=== PATIENT | male | born 2005 | race Caucasian/White ===

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

== ENCOUNTER 2023-08-07 16:20 | Emergency (ER) | payer OTHER, SELFPAY ==
[2023-08-07 16:33] VITALS: BP 148/97; PULSE 116; RESP 15; O2SAT 99; BMI 23.6
--- NOTE | 2023-08-07 16:44 | ECG_ITS ---
Test Reason : OD Blood Pressure : / mmHG Vent. Rate : 100 BPM Atrial Rate : 100 BPM P-R Int : 140 ms QRS Dur : 084 ms QT Int : 348 ms P-R-T Axes : 062 054 033 degrees QTc Int : 448 ms Normal sinus rhythm Normal ECG No previous ECGs available Referred By: Melissa Torres Electronically Signed By:DONNIE AVITIA MD
--- NOTE | 2023-08-07 16:44 | PC.NURSE ---
Addendum entered by Te Estrada 08/07/23 16:47: MARTINEZ KHAN AWARE. Original Note: 1640 CALLED POISON CONTROL - RECOMMENDATIONS NO CHARCOAL. EKG NOW; REPEAT EVERY 2 HRS X3, THEN EVERY 4HRS TIL MEDICALLY CLEARED. SUPPORTIVE CARE. LABS; TYLENOL, SALYCILATES, LFTS, CMP. KEEP MAG >2, K>4. WATCH FOR ANTICHOLENERGIC EFFECTS/URINARY RETENTION. BENZOS FOR AGITATION. BICARB IF QRS>100.
--- NOTE | 2023-08-07 16:45 | PC.NURSE ---
pt changed over by security belongings in pod linen closet. 1:1 sitter at bedside. on heart monitor. report given to Kate TORRES taking over care at this time.
--- NOTE | 2023-08-07 16:53 | ED.OVERDOSE ---
HPI - Overdose General Chief Complaint: Psychiatric Symptoms Stated Complaint: SI with plan, pt took 850 mg of benadryl, per ems Time Seen by Provider: 08/07/23 16:25 Source: patient, family and EMS Mode of arrival: EMS Limitations: no limitations History of Present Illness HPI Narrative: patient is a 18-year-old male who presents emergency department via EMS with his mother; Regina Ramirez. Patient presents today after SI attempt. He posted a photo to his social media of 8 50 mg Benadryl tablets that he reportedly had taken at approximately 1300 after his girlfriend had broken up with him. His friends had reportedly sent a photo of this post to his mother who contacted father who was at home. When father confronted him about this he stormed out of the house and drove off. They were able to find him 2 blocks away from the home he was sitting in a parking lot in his car. He has been drowsy since then but does answer questions appropriately. Mother reports that he has a history of OCD and he often gets very obsessive thoughts. Within the past 4-6 weeks his Prozac dose was increased to 40 mg. Per mother's report, she does not believe any additional Prozac was taken then routinely scheduled after viewing the bottle. She states that he does smoke marijuana daily in the he denies any additional recreational drug usage. Patient denies taking anything else. He is answering questions appropriately, with 1-2 word answers. Very withdrawn. Related Data Allergies Allergy/AdvReac Type Severity Reaction Status Date / Time Penicillins [PENICILLINS] Allergy Intermediate RASH, Unverified 04/16/20 17:33 VOMITING amoxicillin [From AUGMENTIN] Allergy Unknown HIVES/VOMIT Unverified 04/16/20 17:33 clavulanic acid Allergy Unknown HIVES/VOMIT Unverified 04/16/20 17:33 [From AUGMENTIN] clindamycin [CLINDAMYCIN] Allergy Unknown HIVES/VOMIT Unverified 04/16/20 17:33 penicillamine Allergy Unknown Verified 03/16/20 00:00 Erythromycin Allergy Unknown Uncoded 03/16/20 00:00 Review of Systems Review of Systems: Yes all other systems are reviewed and are negative PMFSH Past Medical History Attestation statement: The following information was validated with the patient. Source: old records reviewed Onset Date is defined in the Problem List Problems that require an onset date and time if occurred within 24 hrs of arrival to the ED Aortic Dissection and Rupture; Neurologic impairment; Cardiopulmonary Arrest; Endotracheal Intubation; Insertion or Replacement of Mechanical Circulatory Assist Device Medical History (Updated 08/08/23 @ 00:56 by Melissa Torres CNP) OCD (obsessive compulsive disorder) Social History Social History Advance Directives: No Advance Directives Information Provided: No Physical Exam Vital Signs: Vital Signs: Last Vital Signs Temp 98.8 F 08/07/23 20:40 Pulse 77 08/07/23 20:40 Resp 16 08/07/23 20:40 BP 137/83 08/07/23 20:40 Pulse Ox 97 08/07/23 20:40 O2 Del Method Room Air 08/07/23 20:40 BMI result Body Mass Index 23.6 Appearance: Alert.?Oriented to person, place and time. No acute distress.?Normal affect. Eyes: Pupils equal, round and reactive to light.? ENT: Pharynx normal.?? Neck: Normal inspection.? Neck supple.?? CVS: Heart sounds normal. Normal heart rate and rhythm.? Pulses normal.?? Respiratory: No respiratory distress.? Lung sounds clear to auscultation bilaterally?? Abdomen: Soft and non-tender. Normoactive bowel sounds. Skin: Skin warm and dry.? Normal skin color.? Extremities: No lower extremity edema.? Neuro: Moves all extremities spontaneously. Sensation intact bilaterally. CN II-XII intact. No focal neuro deficits. Ambulates with normal steady gait. Course Reevaluation(s) Reevaluation #1: serial EKGs remain unchanged normal sinus rhythm, normal QRS and QTC. Serum labs are unremarkable. Per poison Control, goal for magnesium > to, resulted at 1.7, patient received 2 g IV replacement. Remains conscious alert and oriented x3. Speech clear full sentences. Much more awake than his initial arrival. Toxicology is otherwise negative. At this time feel that he is medically cleared for care team evaluation. He has been placed in physician observation. Time: 21:58 Medications Administered Discontinued Medications Generic Name Dose Route Start Last Admin Trade Name Freq PRN Reason Stop Dose Admin Magnesium Sulfate 2 gm in 50 mls @ 25 mls/hr 08/07/23 20:55 08/07/23 23:10 Magnesium Sulfate/H2o IV 08/07/23 22:54 Infused ONCE ONE Infusion Medical Decision Making Medical Decision Making [facility] Narrative: Patient is a 18-year-old male with past medical history of OCD who presents to the emergency department via EMS for evaluation after diphenhydramine overdose as an SI attempt. Far as we know patient took 400 mg of diphenhydramine at approximately 13:00 to day as per HPI. At the time my examination he is drowsy but able to respond to verbal stimuli and answer questions appropriately. denies any physical complaints at this time. Denies homicidal ideations. poison control was contacted, with recommendations for EKG now, then every 2 hours for a total of 3 EKGs. should QRS be greater than 100 MS bicarb to be administered. no activated charcoal to be administered Differential Diagnosis Differential Diagnoses: The differential diagnosis associated with the presentation includes ( intentional diphenhydramine overdose, suicidal ideations, depression, arrhythmia) Admission/Observation Consideration of admission/observation: Escalation of care including admission/observation considered patient will require physician observation for serial monitoring as Per narrative above. Once medically cleared he will remain in physician observation so that care team evaluation can ensue. Lab Data [facility] Lab Attestation statement: I reviewed the patient's lab results. ( see course narrative) 08/07/23 17:02 08/07/23 17:02 Labs: Lab Results 08/07/23 08/07/23 Range/Units 17:02 19:18 WBC 8.6 (4.8-10.8) X10*3/uL RBC 4.92 (4.60-5.80) X10*6/uL Hgb 14.9 (14.0-18.0) g/dl Hct 43.9 (42.0-52.0) % MCV 89.2 (80.0-98.0) fL MCH 30.3 (27.0-33.0) pg MCHC 33.9 (31.0-36.0) g/dl RDW 12.4 (11.0-16.0) % Plt Count 332 (160-400) X10*3/uL MPV 8.5 L (9.4-12.4) fL Immature Gran % (Auto) 0.1 (0.0-0.4) % Neut % (Auto) 77.8 H (45-73) % Lymph % (Auto) 16.1 L (20-40) % [place] % (Auto) 5.0 (2-11) % Eos % (Auto) 0.4 (0-4) % Baso % (Auto) 0.6 (0-2) % Lymph # (Auto) 1.4 (1.2-4.9) X10*3/uL [place] # (Auto) 0.4 (0.1-1.2) X10*3/uL Eos # (Auto) 0.0 (0.0-0.4) X10*3/uL Baso # (Auto) 0.1 (0.0-0.2) X10*3/uL Abs Immat Gran (auto) 0.01 (0.00-0.03) X10*3/uL Absolute Neuts (auto) 6.7 (2.0-8.3) x10*3/uL Absolute Nucleated RBC 0.000 (0.0-0.012) X10*3/uL Nucleated RBC % (auto) 0.0 (0.0-0.2) /100WBC Sodium 140 (135-145) mmol/L Potassium 4.2 (3.3-5.1) mmol/L Chloride 103 (96-108) mmol/L Carbon Dioxide 22 (22-29) mmol/L Anion Gap 19 (12-20) BUN 15 (9-16) mg/dL Creatinine 0.98 (0.5-1.4) mg/dL Estim Creat Clear Calc 120.2 Estimated GFR > 60 Random Glucose 84 (60-115) mg/dL Calcium 9.9 (8.4-10.2) mg/dL Magnesium 1.7 (1.6-2.6) mg/dL Total Bilirubin 0.6 (0.0-1.0) mg/dL AST 17 (5-37) U/L ALT 12 (0-40) U/L Alkaline Phosphatase 118 H (39-117) U/L Troponin I High Sens < 2.7 (<3.5-35.0) ng/L Total Protein 7.5 (6.5-8.0) g/dL Albumin 4.6 (3.5-5.0) g/dL Urine Color Yellow Urine Appearance Clear Urine pH 5.5 (5.0-9.0) Ur Specific [place] 1.020 (1.005-1.025) Urine Protein Negative (Neg-Trace) mg/dL Urine Glucose (UA) Negative (Negative) mg/dL Urine Ketones 80 (Negative) mg/dL Urine Blood Negative (Negative) Urine Nitrite Negative (Negative) Ur Leukocyte Esterase Negative (Negative) Salicylates < 5.0 L (15-30) mg/dL Urine Opiates Screen Not Detected (Not Detect) Urine Fentanyl Screen Not Detected (Not Detect) Acetaminophen < 3 (<30) mcg/mL Ur Barbiturates Screen Not Detected (Not Detect) Ur Phencyclidine Scrn Not Detected (Not Detect) Ur Amphetamines Screen Not Detected (Not Detect) U Benzodiazepines Scrn Not Detected (Not Detect) Urine Cocaine Screen Not Detected (Not Detect) U Marijuana (THC) Screen Not Detected (Not Detect) Ethyl Alcohol < 10 mg/dL Independent Interpretation I performed an independent interpretation of an: EKG Interpretation: initial EKG 16:56 Rate:100 Rhythm:? normal sinus rhythm Normal P waves.? Normal EMILY.?? Normal QRS complex: 84ms?? ST T wave :?? no ST ratio, no ST depression qTC: 448 The study has been interpreted contemporaneously by me. Independent Historian Clinical information obtained from an independent historian. History obtained from or confirmed by: Parent and EMS External Record Review External record reviewed: Other (Poison Control) Discharge Plan Discharge Clinical Impression: Suicide ideation Intentional overdose Qualifiers: Encounter type: initial encounter Qualified Code(s): T50.902A - Poisoning by unspecified drugs, medicaments and biological substances, intentional self-harm, initial encounter Patient Disposition: Still a Patient Interventions: Dodge-Suicide Risk Severity Scale Last Done: 08/07/23 17:29
[2023-08-07 17:04] VITALS: BP 139/82; PULSE 97; RESP 15; TEMP 36.2; O2SAT 99
[2023-08-07 17:07] LABS: MANUAL DIFF FLAG NO
[2023-08-07 17:10] LABS: Basophils Absolute Auto 0.1 X10*3/uL (0.0-0.2); Basophils Percent Auto 0.6 % (0-2); Eosinophils Percent Auto 0.4 % (0-4); Hematocrit 43.9 % (42.0-52.0); Hemoglobin 14.9 g/dl (14.0-18.0); Imm Gran Abs Auto 0.01 X10*3/uL (0.00-0.03); Imm Gran Pct Auto 0.1 % (0.0-0.4); Lymphocytes Absolute Auto 1.4 X10*3/uL (1.2-4.9); Lymphocytes Percent Auto 16.1 % (20-40); Mean Corpuscular HGB Conc 33.9 g/dl (31.0-36.0); Mean Corpuscular Hemoglobin 30.3 pg (27.0-33.0); Mean Corpuscular Volume 89.2 fL (80.0-98.0); Mean Platelet Volume 8.5 fL (9.4-12.4); Monocytes Absolute Auto 0.4 X10*3/uL (0.1-1.2); Neutrophils Absolute Auto 6.7 x10*3/uL (2.0-8.3); Neutrophils Percent Auto 77.8 % (45-73); Platelet Count 332 X10*3/uL (160-400); Red Blood Count 4.92 X10*6/uL (4.60-5.80); Red Cell Distribution Width 12.4 % (11.0-16.0); White Blood Count 8.6 X10*3/uL (4.8-10.8)
[2023-08-07 17:27] LABS: Acetaminophen LAB < 3 mcg/mL (<30); Alanine Aminotransferase 12 U/L (0-40); Albumin Level 4.6 g/dL (3.5-5.0); Alkaline Phosphatase 118 U/L (39-117); Anion Gap 19 (12-20); Aspartate Amino Transferase 17 U/L (5-37); Bilirubin Total 0.6 mg/dL (0.0-1.0); Blood Urea Nitrogen 15 mg/dL (9-16); Calcium 9.9 mg/dL (8.4-10.2); Carbon Dioxide 22 mmol/L (22-29); Chloride 103 mmol/L (96-108); Creatinine Clr Calc Pharmacy 120.2; Estimated Glomerular Filt Rate > 60; Ethanol < 10 mg/dL; Glucose Random 84 mg/dL (60-115); Magnesium 1.7 mg/dL (1.6-2.6); Potassium 4.2 mmol/L (3.3-5.1); Salicylate < 5.0 mg/dL (15-30); Sodium 140 mmol/L (135-145); Total Protein 7.5 g/dL (6.5-8.0)
[2023-08-07 17:35] LABS: Troponin-I High Sensitivity < 2.7 ng/L (<3.5-35.0)
--- NOTE | 2023-08-07 19:00 | ECG_ITS ---
Test Reason : OVERDOSE Blood Pressure : / mmHG Vent. Rate : 084 BPM Atrial Rate : 084 BPM P-R Int : 142 ms QRS Dur : 084 ms QT Int : 356 ms P-R-T Axes : 063 058 028 degrees QTc Int : 420 ms Normal sinus rhythm Normal ECG When compared with ECG of 07-AUG-2023 16:56, No significant change was found Referred By: Melissa Torres Electronically Signed By:DONNIE AVITIA MD
[2023-08-07 19:19] VITALS: BP 136/84; PULSE 77; RESP 18; TEMP 36.9; O2SAT 98
[2023-08-07 19:28] LABS: Appearance Urine Clear; Color Urine Yellow; Glucose Urine UA Negative (Negative); Leukocyte Esterase Urine Negative (Negative); Nitrite Urine Negative (Negative); PH 5.5 (5.0-9.0); Urine Blood Negative (Negative); Urine Ketones 80 mg/dL (Negative); Urine Protein Negative (Neg-Trace)
[2023-08-07 19:35] LABS: Amphetamine Screen Urine Not Detected (Not Detect); Barbiturates, Urine Not Detected (Not Detect); Benzodiazepines Screen Urine Not Detected (Not Detect); Cannabinoid Screen Urine Not Detected (Not Detect); Cocaine Screen Urine Not Detected (Not Detect); Fentanyl, urine Not Detected (Not Detect); Opiate Screen Urine Not Detected (Not Detect); Phencyclidine Screen Urine Not Detected (Not Detect)
[2023-08-07 20:40] VITALS: BP 137/83; PULSE 77; RESP 16; TEMP 37.1; O2SAT 97
--- NOTE | 2023-08-07 20:52 | PC.NURSE ---
per poison control supp mag to 2.0
--- NOTE | 2023-08-07 20:55 | PC.NURSE ---
per poison control magnesium should be supplemented a level of 2. if patient remains sleepy he should be monitored overnight. this info was reported to Vargas Gage.
--- NOTE | 2023-08-07 21:00 | ECG_ITS ---
Test Reason : OVERDOSE-REPEAT Blood Pressure : / mmHG Vent. Rate : 071 BPM Atrial Rate : 071 BPM P-R Int : 142 ms QRS Dur : 086 ms QT Int : 388 ms P-R-T Axes : 051 046 037 degrees QTc Int : 421 ms Normal sinus rhythm Normal ECG When compared with ECG of 07-AUG-2023 19:04, No significant change was found Referred By: Melissa Torres Electronically Signed By:DONNIE AVITIA MD
[2023-08-07] MEDS: Magnesium Sulfate/H2O 2 GM/50 ML PIGGYBACK IV (21:10)
[2023-08-08 06:25] VITALS: BP 122/71; PULSE 60; RESP 18; TEMP 36.4; O2SAT 98
--- NOTE | 2023-08-08 07:56 | PC.NURSE ---
Care team at bedside speaking with pt.
[2023-08-08 08:41] VITALS: BP 134/81; PULSE 85; RESP 16; TEMP 36.7; O2SAT 97
== END 2023-08-08 08:42 | disposition home or self-care (01) ==
PROVIDERS: Nurse Practitioner Family; Emergency Provider Emergency Medicine Emergency Medical Services; PCP Pediatrics
DX: T45.0X1A Poisoning by antiallergic and antiemetic drugs, accidental (unintentional), initial encounter (principal); Y92.9 Unspecified place or not applicable; R45.851 Suicidal ideations; R94.31 Abnormal electrocardiogram [ECG] [EKG]; Z63.0 Problems in relationship with spouse or partner; Z79.899 Other long term (current) drug therapy
CPT/HCPCS: 36415; 80053; 80143; 80179; 80307; 81003; 83735; 84484; 85025; 93005; 96365; 99285; J3475; S9485

== ENCOUNTER → 2023-08-07 16:44 | Outpatient (BNV) | payer OTHER, SELFPAY | PROVIDERS: Emergency Provider Emergency Medicine Emergency Medical Services; PCP Pediatrics; Visit Provider Internal Medicine Cardiovascular Disease | DX: R45.851 Suicidal ideations (principal) | CPT/HCPCS: 93010 ==

== ENCOUNTER 2023-10-02 15:41 | Outpatient (AMB) | payer OTHER, SELFPAY ==
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
[2023-10-02 15:46] VITALS: BP 110/80; PULSE 71; TEMP 36.4; O2SAT 98; BMI 24.2
== END 2023-10-02 17:16 | disposition home or self-care (01) ==
PROVIDERS: PCP Pediatrics; Visit Provider Internal Medicine
DX: S62.339A Displaced fracture of neck of unspecified metacarpal bone, initial encounter for closed fracture (principal)
CPT/HCPCS: 99214

== ENCOUNTER 2023-10-02 16:04 | Outpatient (REF) | payer OTHER, SELFPAY ==
--- NOTE | ~2023-10-02 | XR_ITS ---
EXAMINATION: XR HAND, LEFT CLINICAL INFORMATION: Left hand contusion. COMPARISON: None available. TECHNIQUE: PA, lateral, and oblique views of the left hand. FINDINGS: Comminuted mildly displaced fracture involving the distal shaft of the fifth metacarpal. No intra-articular extension. There is surrounding soft tissue swelling. XR/XR hand LT min 3V IMPRESSION: Comminuted mildly displaced fracture involving the distal fifth metacarpal.
== END 2023-10-02 16:05 | disposition home or self-care (01) ==
LOC: HO.HMGCX 16:04
PROVIDERS: Visit Provider Internal Medicine
DX: S60.222A Contusion of left hand, initial encounter (principal)
CPT/HCPCS: 73130

== ENCOUNTER 2023-10-13 08:53 | Outpatient (REF) | payer OTHER, SELFPAY ==
--- NOTE | ~2023-10-13 | XR_ITS ---
EXAMINATION: XR HAND, LEFT CLINICAL INFORMATION: Pain in left hand, splint off. COMPARISON: 10/02/2023. TECHNIQUE: Four views of the left hand. FINDINGS: Redemonstration of a comminuted, mildly displaced fracture of the distal shaft of the fifth metacarpal. There does not appear to be intra-articular extension. Fracture lines are less distinct, suggesting some interval bridging callus formation. Tiny ossicles redemonstrated along the dorsal aspect of the wrist, possibly representing chronic/degenerative process or sequela of prior trauma. Correlation with clinical exam recommended to determine further management. XR/XR hand LT min 3V IMPRESSION: Healing comminuted mildly displaced fracture involving the distal fifth metacarpal. Tiny ossicles demonstrated along the dorsal aspect of the wrist, possibly representing chronic/degenerative process or sequela of prior trauma. Correlation with clinical exam recommended to determine further management.
== END 2023-10-13 08:54 | disposition home or self-care (01) ==
LOC: HO.HOSX 08:53
PROVIDERS: Visit Provider Physician Assistant
DX: M79.642 Pain in left hand (principal)
CPT/HCPCS: 73130

== ENCOUNTER 2023-10-13 09:51 | Outpatient (AMB) | payer OTHER, SELFPAY ==
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
[2023-10-13 10:06] VITALS: BMI 24.2
== END 2023-10-13 10:26 | disposition home or self-care (01) ==
PROVIDERS: PCP Pediatrics; Visit Provider Physician Assistant
DX: S62.337A Displaced fracture of neck of fifth metacarpal bone, left hand, initial encounter for closed fracture (principal)
CPT/HCPCS: 99203

== ENCOUNTER 2023-11-10 08:29 | Outpatient (REF) | payer OTHER, SELFPAY ==
--- NOTE | ~2023-11-10 | XR_ITS ---
EXAMINATION: XR HAND, LEFT CLINICAL INFORMATION: Pain in left hand. COMPARISON: 10/23/2023, 10/02/2023. TECHNIQUE: 3 views of the left hand. Radiopaque marker placed by technologist to indicate area of concern indicated by the patient adjacent to the fifth metacarpal head. FINDINGS: Redemonstration of a comminuted, mildly displaced fracture of the distal shaft of the fifth metacarpal with some interval bridging callus formation. Tiny ossicles redemonstrated along the dorsal aspect of the wrist as noted on prior exams of 10/13/2023 and 10/02/2023, although less conspicuous on the current exam, possibly due to technical differences, possibly representing chronic/degenerative process or sequela prior trauma. Correlation with clinical exam recommended to determine further management. XR/XR hand LT min 3V IMPRESSION: 1. Redemonstration of a comminuted, mildly displaced fracture of the distal shaft of the fifth metacarpal with some interval bridging callus formation. 2. Tiny ossicles redemonstrated along the dorsal aspect of the wrist as noted on prior exams of 10/13/2023 and 10/02/2023, although less conspicuous on the current exam, possibly due to technical differences, possibly representing chronic/degenerative process or sequela prior trauma. Correlation with clinical exam recommended to determine further management.
== END 2023-11-10 08:30 | disposition home or self-care (01) ==
LOC: HO.HOSX 08:29
PROVIDERS: Visit Provider Physician Assistant
DX: M79.642 Pain in left hand (principal)
CPT/HCPCS: 73130

== ENCOUNTER 2023-11-10 09:40 | Outpatient (AMB) | payer OTHER, SELFPAY ==
--- NOTE | 2023-11-10 09:42 | MHC.OFFVIS ---
Intake Intake Visit Reasons: ov-fu left hand with xrays Intake Note: Cooper a 18 year old right hand dominant male presents today for an evaluation of 5th MC fx, DOI 09/16/23. Xrays updated. Patient reports he is doing well, denies any pain. He continues to use wrist brace with activity. Allergies Penicillins [PENICILLINS] Allergy (Intermediate, Unverified 11/10/23 09:53) RASH, VOMITING amoxicillin [From AUGMENTIN] Allergy (Unknown, Unverified 11/10/23 09:53) HIVES/VOMIT clavulanic acid [From AUGMENTIN] Allergy (Unknown, Unverified 11/10/23 09:53) HIVES/VOMIT clindamycin [CLINDAMYCIN] Allergy (Unknown, Unverified 11/10/23 09:53) HIVES/VOMIT penicillamine Adverse Reaction (Mild, Verified 11/10/23 09:53) Muscle Pain Erythromycin Allergy (Unknown, Uncoded 11/10/23 09:53) Abdominal Pain HPI ov-fu left hand with xrays HPI Details 18-year-old right hand dominant male who returns to the office today for a follow-up of left 5th metacarpal fracture, 09/16/23. He states he has no pain and is doing well overall. He continues to use the wrist brace with activities. He has no concerns today. 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 Review of Systems Const All systems reviewed & are unremarkable except as noted in HPI and below Physical Exam Const General: cooperative, healthy appearing, comfortable, no acute distress, well developed and alert Orientation/consciousness: patient oriented x3 HEENT Head: Yes normal to inspection, Yes normocephalic and Yes atraumatic Eyes General: appearance normal, both eyes and all related structures Resp Effort & Inspection: normal respiratory effort and able to speak in complete sentences Cardio Rate: regular rate Peripheral pulses: Peripheral pulses 2+ throughout GI Palpation (GI): Soft to palpation Skin Lesions: no lesions Rashes: no rashes Neuro General: patient oriented x3 Extrem Other: Left hand: Normal to inspection. There is some tenderness over the neck of the 5th metacarpal. There is no scissoring or angulation of the small finger. He can fully extend and bring his hand to a closed fist. Results Reviewed Results Reviewed: Xrays were obtained in the office today and personally reviewed by me of the left hand show Comminuted mildly displaced fracture involving the distal fifth metacarpal with interval healing and callus formation. Assessment & Plan Assessment & Plan (1) Boxers fracture: Code(s): S62.339A - Displaced fracture of neck of unspecified metacarpal bone, initial encounter for closed fracture Qualifiers: Encounter type: subsequent encounter Fracture type: closed Fracture healing: with routine healing Qualified Code(s): S62.339D - Displaced fracture of neck of unspecified metacarpal bone, subsequent encounter for fracture with routine healing Plan He will increase activity as tolerated. I did educate him that the fracture is stable and healing but is not yet strong. Over the 4 weeks I expect him to avoid impact activities and if symptoms persist or worsens, patient will contact the office, otherwise follow-up as needed. Orders: Orders XR hand LT min 3V Today M79.642 - Pain in left hand Patient Instructions: Scribed for Michelet Argueta PA-C, by Quirino Britt medical manager, on 11/10/2023 at 9:45 AM EST. IMichelet PA-C, have personally reviewed and agree with the information entered by the scribe. Coding Level of Care Code Global (22440) Diagnoses Closed boxer's fracture with routine healing, subsequent encounter S62.339D Encounter type: subsequent encounter Fracture type: closed Fracture healing: with routine healing
== END 2023-11-10 11:25 | disposition home or self-care (01) ==
PROVIDERS: PCP Pediatrics; Visit Provider Physician Assistant
DX: S62.337D Displaced fracture of neck of fifth metacarpal bone, left hand, subsequent encounter for fracture with routine healing (principal)
CPT/HCPCS: 99213

== ENCOUNTER 2024-06-07 14:42 | Outpatient (AMB) | payer OTHER, SELFPAY ==
--- NOTE | 2024-06-07 14:52 | AM.OFFWIN_ITS ---
Intake Vital Signs 3 06/07/24 14:53 Weight 159 lb BP 120/82 Blood Pressure Location Lt brachial Position Sitting Pulse 55 Pulse Source Pulse Oximeter Pulse Oximetry (%) 98 Oxygen Delivery Method Room Air Intake Visit Reasons: EP laceration on rt gregory Intake Note: Patient here for laceration on right leg after falling while skateboarding Patient Tobacco Use Status: Former Tobacco user Allergies Penicillins [PENICILLINS] Allergy (Intermediate, Unverified 06/07/24 14:54) RASH, VOMITING amoxicillin [From AUGMENTIN] Allergy (Unknown, Unverified 06/07/24 14:54) HIVES/VOMIT clavulanic acid [From AUGMENTIN] Allergy (Unknown, Unverified 06/07/24 14:54) HIVES/VOMIT clindamycin [CLINDAMYCIN] Allergy (Unknown, Unverified 06/07/24 14:54) HIVES/VOMIT penicillamine Adverse Reaction (Mild, Verified 06/07/24 14:54) Muscle Pain Erythromycin Allergy (Unknown, Uncoded 06/07/24 14:54) Abdominal Pain Do you need a note to return to daycare/school/sports/work: No HPI HPI Comments 2 History of Present Illness0 Details Patient is a 18-year-old male complaining of a wound on his right lower extremity. He states he was skateboarding just prior to arrival and he fell, and his skateboard cut his right lower leg. He states it was bleeding quite a bit so he wrapped it with a towel and tied as she lays around it. 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 Review of Systems Const All systems reviewed & are unremarkable except as noted in HPI and below Physical Exam Vital Signs: Last Vital Signs Pulse 55 06/07/24 14:53 BP 120/82 06/07/24 14:53 Pulse Ox 98 06/07/24 14:53 Oxygen Delivery Method Room Air 06/07/24 14:53 Const General: cooperative, healthy appearing, comfortable, no acute distress and well developed Orientation/consciousness: patient oriented x3 Limitations: no limitations HEENT Head: Yes normal to inspection Neck Neck: Yes normal visual inspection and Yes supple Neuro General: patient oriented x3 Extrem Elbow/forearm/wrist images: 2 1. open superficial laceration, bleeding controlled, clean line, no ecchymosis, Office Procedures Laceration Repair Procedure Location: right lower extremity, anterior mid EMLA: 2% Lidocaine Text: After discussion of risk and benefits, verbal informed consent was obtained. The area was cleaned, prepped, and draped using sterile technique. The wound was debrided of any foreign material or devitalized tissue. Wound edges were approximated and closed using 2 (two) 4-0 sutures. Standard wound dressing was applied. Wound care instructions were given. The patient tolerated the procedure well. The patient was instructed to return for increased redness or red streaking, pain, swelling, pus, fevers, chills, or any other signs or symptoms of infection or worsening. DAC Patient was instructed to return for suture removal in 8-10 days. Assessment & Plan Assessment & Plan (1) Leg wound, right: Code(s): S81.801A - Unspecified open wound, right lower leg, initial encounter Qualifiers: Encounter type: initial encounter Qualified Code(s): S81.801A - Unspecified open wound, right lower leg, initial encounter Plan: Applied 2 sutures, bacitracin and a Band-Aid, recommended he come back in 8-10 days to have the sutures removed. Plan see above Coding Level of Care Code New Pt Level 4 (34161) Diagnoses Wound of right lower extremity, initial encounter S81.801A Encounter type: initial encounter
[2024-06-07 14:53] VITALS: BP 120/82; PULSE 55; O2SAT 98
== END 2024-06-07 15:29 | disposition home or self-care (01) ==
PROVIDERS: PCP Pediatrics; Visit Provider Physician Assistant
DX: S81.801A Unspecified open wound, right lower leg, initial encounter (principal); Y93.51 Activity, roller skating (inline) and skateboarding

== ENCOUNTER → 2024-06-07 14:42 | Outpatient (BNVA) | payer OTHER, SELFPAY | PROVIDERS: PCP Pediatrics; Visit Provider Physician Assistant | DX: S81.811A Laceration without foreign body, right lower leg, initial encounter (principal); V00.131A Fall from skateboard, initial encounter; Y93.51 Activity, roller skating (inline) and skateboarding; Y92.9 Unspecified place or not applicable; Y99.9 Unspecified external cause status | CPT/HCPCS: 12001 ==

== ENCOUNTER 2024-06-16 22:24 | Emergency (ER) | payer OTHER, SELFPAY ==
--- NOTE | ~2024-06-16 | XR_ITS ---
EXAMINATION: XR HAND, RIGHT CLINICAL INFORMATION: Swelling post injury COMPARISON: None available. TECHNIQUE: PA, lateral, and oblique views of the right hand. FINDINGS: There is a spiral fracture through the mid fifth metacarpal with associated soft tissue swelling The bones and soft tissues are otherwise unremarkable. No other fracture. Alignment is anatomic. Joint spaces are maintained. No erosions or soft tissue calcifications. XR/XR hand RT min 3V IMPRESSION: Spiral fracture through the mid fifth metacarpal with associated soft tissue swelling. Electronically signed by: Braydon Eden MD 06/17/2024 12:12 AM NHUNG GORDON
[2024-06-16 22:33] VITALS: BP 119/67; PULSE 56; RESP 16; TEMP 36.2; O2SAT 100; BMI 22.9
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
[2024-06-16] MEDS: Lidocaine HCl 1%/Epi 1:100,000 10 ML VIAL INFILTRATI (23:24)
--- NOTE | 2024-06-16 23:25 | PC.NURSE ---
xylocaine given by provider to wound.
[2024-06-17] MEDS: levoFLOXacin 750 MG TABLET PO (00:29)
[2024-06-17] MEDS: metroNIDAZOLE 500 MG TABLET PO (00:29)
[2024-06-17 00:32] VITALS: BP 119/67; PULSE 56; RESP 16; TEMP 36.2; O2SAT 100
== END 2024-06-17 00:33 | disposition home or self-care (01) ==
PROVIDERS: Emergency Provider Emergency Medicine Emergency Medical Services; PCP Pediatrics
DX: S62.91XA Unspecified fracture of right hand, initial encounter for closed fracture (principal); X58.XXXA Exposure to other specified factors, initial encounter; Y93.41 Activity, dancing; Y92.89 Other specified places as the place of occurrence of the external cause; Y99.8 Other external cause status; Z79.899 Other long term (current) drug therapy
CPT/HCPCS: 29125; 73130; 99282; 99284; J2004

== ENCOUNTER 2024-06-19 07:54 | Outpatient (REF) | payer OTHER, SELFPAY | END 2024-06-19 07:55 | disposition home or self-care (01) | LOC: HO.HOSX 07:54 | DX: M79.641 Pain in right hand (principal) | CPT/HCPCS: 73130 ==

== ENCOUNTER 2024-06-19 08:56 | Outpatient (AMB) | payer OTHER, SELFPAY ==
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
== END 2024-06-19 09:31 | disposition home or self-care (01) ==
PROVIDERS: PCP Pediatrics
DX: S62.326A Displaced fracture of shaft of fifth metacarpal bone, right hand, initial encounter for closed fracture (principal)
CPT/HCPCS: 99214

== ENCOUNTER 2024-06-24 08:40 | Day surgery (SDC) | payer OTHER, SELFPAY ==
--- NOTE | 2024-06-20 13:46 | P.CONAN_ITS ---
Documented by User: Alyssa Morel NP 06/20/24 13:46 HPI - Anesthesia Eval Consult details Narrative: 18yo M for4 5th Metacarpal CRPP vs ORIF PMFSH Active Problems Active Problems: All Active Problems Fracture of shaft of fifth metacarpal bone of right hand (Acute) Leg wound, right (Acute) Past Medical History Medical History OCD (obsessive compulsive disorder) Surgical History Surgical History History of hernia surgery Social History Social History Patient Tobacco Use Status: Former Tobacco user Have you been hit, kicked, punched, or otherwise hurt by someone within the past year? If so, by whom?: No Are you DNR?: No Advance Directives: No Advance Directives Information Provided: Yes Nutrition Risks: No Nutritional Risk Current occupational status: employed Current occupation: [employer], right hand dominant Meds Allergies Allergy/AdvReac Type Severity Reaction Status Date / Time Penicillins [PENICILLINS] Allergy Intermediate RASH, Verified 06/19/24 08:57 VOMITING amoxicillin [From AUGMENTIN] Allergy Unknown HIVES/VOMIT Verified 06/19/24 08:57 clavulanic acid Allergy Unknown HIVES/VOMIT Verified 06/19/24 08:57 [From AUGMENTIN] clindamycin [CLINDAMYCIN] Allergy Unknown HIVES/VOMIT Verified 06/19/24 08:57 penicillamine AdvReac Mild Muscle Pain Verified 06/19/24 08:57 Erythromycin Allergy Unknown Abdominal Uncoded 06/19/24 08:57 Pain Home Medications ?Medication ?Instructions ?Recorded ?Confirmed ?Last Taken ?Type fluoxetine 40 mg capsule 40 mg PO DAILY 10/13/23 06/24/24 06/23/24 History Assessment and Plan Assessment Anesthesia Assessment: Chart Reviewed Documented by User: Cassandra Grier MD 06/24/24 10:25 [facility] Past Medical History Medical History OCD (obsessive compulsive disorder) Family History Family history of problems with anesthesia: No Surgical History Surgical History History of hernia surgery History of Problems with Anesthesia: No Social History Social History Patient Tobacco Use Status: Former Tobacco user Have you been hit, kicked, punched, or otherwise hurt by someone within the past year? 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 Meds Allergies Allergy/AdvReac Type Severity Reaction Status Date / Time Penicillins [PENICILLINS] Allergy Intermediate RASH, Verified 06/19/24 08:57 VOMITING amoxicillin [From AUGMENTIN] Allergy Unknown HIVES/VOMIT Verified 06/19/24 08:57 clavulanic acid Allergy Unknown HIVES/VOMIT Verified 06/19/24 08:57 [From AUGMENTIN] clindamycin [CLINDAMYCIN] Allergy Unknown HIVES/VOMIT Verified 06/19/24 08:57 penicillamine AdvReac Mild Muscle Pain Verified 06/19/24 08:57 Erythromycin Allergy Unknown Abdominal Uncoded 06/19/24 08:57 Pain Home Medications ?Medication ?Instructions ?Recorded ?Confirmed ?Last Taken ?Type fluoxetine 40 mg capsule 40 mg PO DAILY 10/13/23 06/24/24 06/23/24 History Exam Airway Mallampati Class: II TM Dist: >3cm Neck ROM: Full Heart: rrr Lungs: cta Assessment and Plan Assessment Anesthesia Assessment: Anesthesia Plan Discussed Final Anesthetic Review Family History of Problems with Anesthesia: No History of Problems with Anesthesia: No NPO: Yes ASA Class: II Final Preanesthetic Review: No Changes in Pt Med Stat, Meds/Allgs Chart Reviewed, Consent Obtained/Reviewed and Anes Risks/Benef Reviewed Patient Risk: Low Procedure Risk: Low Anesthetic Plan Anesthetic Plan: GA Disposition: Standard PACU
[2024-06-24] VITALS (7 sets, daily range): BP systolic 101–131; BP diastolic 46–87; PULSE 56–72; RESP 12–18; TEMP 36.1–36.6; O2SAT 94–99; BMI 24.5; BMI 24.9
[2024-06-24] MEDS: Lactated Ringers 1,000 ML 100 ML IVCONT (09:11)
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
--- NOTE | 2024-06-24 09:31 | PC.NURSE ---
halely with dr jones for patient to have cefazolin ordered allergies is nausea and rash from pcnpo
--- NOTE | 2024-06-24 10:27 | MHC.SHP ---
Pre-Procedural Eval Section A - 24 Hr Update-Section A only Date of Service: 06/24/24 The patient is an INPATIENT: No Changes since office visit: No Cold of Flu in the past 2 weeks, No New Medical Problems, No Changes in Medication and No Patient answered all questions The patient has been examined within 24 hours of the surgical procedure. The History & Physical has been completed within 30 days and I have reviewed it.: Yes Section B - Complete if H&P > 30 days Chief Complaint: Unspecified fracture of fifth metacarpal bone, Allergies: Allergies Allergy/AdvReac Type Severity Reaction Status Date / Time Penicillins [PENICILLINS] Allergy Intermediate RASH, Verified 06/19/24 08:57 VOMITING amoxicillin [From AUGMENTIN] Allergy Unknown HIVES/VOMIT Verified 06/19/24 08:57 clavulanic acid Allergy Unknown HIVES/VOMIT Verified 06/19/24 08:57 [From AUGMENTIN] clindamycin [CLINDAMYCIN] Allergy Unknown HIVES/VOMIT Verified 06/19/24 08:57 penicillamine AdvReac Mild Muscle Pain Verified 06/19/24 08:57 Erythromycin Allergy Unknown Abdominal Uncoded 06/19/24 08:57 Pain Exam Exam Comment: Right 5th metacarpal shaft fracture Plan I have reviewed the history and physical and performed a pertinent physical examination on my patient. No changes have occurred unless specified. Time Spent With Patient Time: Total time managing care of this patient today ____ minutes.
== END 2024-06-24 13:30 | disposition home or self-care (01) ==
PROVIDERS: PCP Pediatrics; Visit Provider Orthopaedic Surgery
PROC: (CPT 26615; principal; 2024-06-24 10:50)
DX: S62.326A Displaced fracture of shaft of fifth metacarpal bone, right hand, initial encounter for closed fracture (principal); S61.401A Unspecified open wound of right hand, initial encounter; M79.641 Pain in right hand; W50.0XXA Accidental hit or strike by another person, initial encounter; Y93.41 Activity, dancing; Y92.64 Mine or pit as the place of occurrence of the external cause; Y99.9 Unspecified external cause status; F42.9 Obsessive-compulsive disorder, unspecified; Z88.0 Allergy status to penicillin; Z88.1 Allergy status to other antibiotic agents; Z87.891 Personal history of nicotine dependence
CPT/HCPCS: 26615; 11012; J0131; J0690; J1100; J2003; J2004; J2250; J2405; J2704; J3010

== ENCOUNTER → 2024-06-24 08:40 | Outpatient (BNV) | payer OTHER, SELFPAY | PROVIDERS: PCP Pediatrics; Visit Provider Orthopaedic Surgery | DX: S62.316A Displaced fracture of base of fifth metacarpal bone, right hand, initial encounter for closed fracture (principal) | CPT/HCPCS: 26608 ==

== ENCOUNTER 2024-06-30 22:24 | Inpatient (IN) | payer OTHER, SELFPAY ==
--- NOTE | ~2024-06-30 | XR_ITS ---
EXAMINATION: XR HAND, RIGHT CLINICAL INFORMATION: S/p CRPP of R 5th MC COMPARISON: None available. TECHNIQUE: PA, lateral, and oblique views of the right hand. FINDINGS/ XR/XR hand RT min 3V IMPRESSION: Status post surgical fixation with 2 orthopedic pins of a fifth mid metacarpal fracture. Improved fracture positioning/alignment. Intact hardware. Overlying dressing limits evaluation.. Electronically signed by: Sukh Cheung MD 07/03/2024 01:41 PM EST
[2024-06-30 22:42] VITALS: BP 130/86; PULSE 93; RESP 18; TEMP 36.9; O2SAT 98; BMI 33.3
--- NOTE | 2024-06-30 23:05 | PC.NURSE ---
Provider at bedside.
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
[2024-06-30 23:17] LABS: Appearance Urine Cloudy; Color Urine Yellow; Glucose Urine UA Negative (Negative); Leukocyte Esterase Urine Negative (Negative); Nitrite Urine Negative (Negative); PH 6.5 (5.0-9.0); Specific Gravity - Urine 1.025 (1.005-1.025); UMIC TRIGGER UACC YES; Urine Blood Negative (Negative); Urine Ketones Trace mg/dL (Negative); Urine Protein 30 (1+) mg/dL (Neg-Trace)
--- NOTE | 2024-06-30 23:20 | PC.NURSE ---
t/w rec'd a call from from registration that pts mom was here to for a visit. Asked to go over visiting hours and to note to mom that CARE team will assess PT tomorrow and therefore should be calling her tomorrow morning
[2024-06-30 23:26] LABS: Amphetamine Screen Urine Not Detected (Not Detect); Barbiturates, Urine Not Detected (Not Detect); Benzodiazepines Screen Urine Not Detected (Not Detect); Buprenorphine Scr Not Detected (Not Detect); Cannabinoid Screen Urine Not Detected (Not Detect); Cocaine Screen Urine Not Detected (Not Detect); Fentanyl, urine Not Detected (Not Detect); Methadone Screen, Urine Not Detected (Not Detect); Opiate Screen Urine Not Detected (Not Detect); Oxycodone Screen Urine Not Detected (Not Detect); Phencyclidine Screen Urine Not Detected (Not Detect)
--- NOTE | 2024-06-30 23:30 | PC.NURSE ---
Assumed care of pt at 2300. Received report from MELISSA Stoddard. PT reportedly initially came to pod agitated and yelling and refusing bloodwork. Worklist not completed. PT appears to be sleeping, respirations even and unlabored. Plan of care ongoing
[2024-06-30 23:31] LABS: Bacteria Urine None Seen (None Seen); Granular Casts Urine Present; RBC Urine 0-2 /HPF (0-2); Squamous Epithelial Cell Urine 0-2 /HPF (0-2); WBC Urine 0-5 /HPF (0-5)
--- NOTE | 2024-07-01 08:26 | PC.NURSE ---
Pt refusing lab work- and refuses to see his mom
--- NOTE | 2024-07-01 10:00 | PC.NURSE ---
Pt refused VS this am
--- NOTE | 2024-07-01 14:44 | PC.NURSE ---
Patient gave permission to speak for typewriter assembler to speak to mom- Pt agreeable to have his labs and VS done
[2024-07-01 15:07] LABS: Hematocrit 43.3 % (42.0-52.0); Hemoglobin 15.1 g/dl (14.0-18.0); Mean Corpuscular HGB Conc 34.9 g/dl (31.0-36.0); Mean Corpuscular Hemoglobin 30.6 pg (27.0-33.0); Mean Corpuscular Volume 87.8 fL (80.0-98.0); Mean Platelet Volume 8.6 fL (9.4-12.4); Platelet Count 282 X10*3/uL (160-400); Red Blood Count 4.93 X10*6/uL (4.60-5.80); Red Cell Distribution Width 12.8 % (11.0-16.0)
[2024-07-01 15:38] LABS: Ethanol < 10 mg/dL
[2024-07-01 15:39] LABS: Alanine Aminotransferase 23 U/L (0-40); Albumin Level 4.9 g/dL (3.5-5.0); Anion Gap 15 (12-20); Aspartate Amino Transferase 28 U/L (5-37); Bilirubin Total 0.9 mg/dL (0.0-1.0); Blood Urea Nitrogen 23 mg/dL (9-16); Calcium 10.6 mg/dL (8.4-10.2); Carbon Dioxide 29 mmol/L (22-29); Chloride 104 mmol/L (96-108); Creatinine Clr Calc Pharmacy 120.7; Estimated Glomerular Filt Rate > 60; Glucose Random 93 mg/dL (60-115); Potassium 4.7 mmol/L (3.3-5.1); Sodium 143 mmol/L (135-145)
[2024-07-01 16:14] VITALS: RESP 16
[2024-07-01 17:50] LABS: Alkaline Phosphatase 108 U/L (39-117)
[2024-07-01 20:00] VITALS: BP 123/73; PULSE 68; RESP 16; TEMP 37.6; O2SAT 97
[2024-07-01 22:05] VITALS: BMI 22.2
[2024-07-01] MEDS: traZODone HCL 50 MG TABLET PO (23:19)
[2024-07-01] MEDS: hydrOXYzine HCL 25 MG TABLET PO (23:19)
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
--- NOTE | 2024-07-02 14:08 | MHC.CLN ---
RE; CONSULT PT WITH HX EATING DISORDER HT 69 WT 150# IBW 160#+/-10%; BMI 22.2 WNL PT IS 94% IBW RANGE INDICATES ADEQUATE WT FOR HT CURRENT WT 68.3KG PREVIOUS (08/07/23) 72.6 KG PT WITH 6% NONSIGNIFICANT WT LOSS X 11 MONTHS; WT REMAINS WITHIN IBW RANGE REVIEWED LABS-UNREMARKABLE REGULAR DIET IN PLACE MONITOR PO INTAKE CLOSELY IF PO INTAKE <25% X 3 DAYS; RECOMMEND ADDING NUTRITION SUPPLEMENT WITH MEALS
[2024-07-02 20:00] VITALS: BP 108/64; PULSE 60; RESP 16; TEMP 37.4; O2SAT 99
[2024-07-02] MEDS: Acetaminophen 325 MG TABLET 650 MG PO (21:28)
[2024-07-02] MEDS: traZODone HCL 50 MG TABLET PO (22:56)
[2024-07-03 07:37] VITALS: BP 99/57; PULSE 65; RESP 16; TEMP 36.7; O2SAT 95
[2024-07-03] MEDS: FLUoxetine HCl 20 MG CAPSULE 60 MG PO (08:10)
[2024-07-03] MEDS: Acetaminophen 325 MG TABLET 650 MG PO (11:30)
[2024-07-03] MEDS: Calcium Carbonate 750 MG TAB.CHEW PO (13:30)
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
--- NOTE | 2024-07-03 17:26 | HO.PSYCHPN ---
Subjective Subjective Date of Service: 07/03/24 Reason For Visit: SI Interim History: calm, cooperative. roused from his bed. reports he continues to have SI. hopeless but slept a bit better last night. feels he is having worse rapid anxious thoughts than yesterday. vistaril made him dizzy, as did trazodone. declines to try different meds, agrees to decrease trazodone dosing to 25 mg PRN. concerned about self-harm with cast if taken off 1:1, prefers to remain on 1:1. per staff, not attending groups. +SI. ate 1 meal yesterday. dizzy from trazodone. Mental Status Exam Mental Status Exam Narrative: thin, tattooed forearms, adequately dressed and groomed. cooperative. no PMA/PMR. speech soft, decr amount. nml rate, latency. thoughts linear and logical. affect constricted, normo-intense, non-labile. mood depressed and anxious. +SI/SIBI. no plan or intent on unit. no HI/AVH expressed. Diagnostics Vital Signs (24Hr): Vital Signs - 24 hr 07/02/24 20:00 07/03/24 07:37 Temperature 99.3 F 98.1 F Pulse Rate 60 65 Respiratory Rate 16 16 Blood Pressure 108/64 99/57 L Pulse Oximetry 99 95 Oxygen Delivery Method Room Air Room Air BMI result Body Mass Index 22.2 Labs 07/01/24 15:01 07/01/24 15:01 Labs: Laboratory Results - last 48 hr 07/01/24 15:01 Alkaline Phosphatase 108 Imaging Radiology Impressions: ITS Impressions Hand X-Ray 07/03/24 09:00 IMPRESSION: Status post surgical fixation with 2 orthopedic pins of a fifth mid metacarpal fracture. Improved fracture positioning/alignment. Intact hardware. Overlying dressing limits evaluation.. Electronically signed by: Sukh Cheung MD 07/03/2024 01:41 PM EST Medications Medications Current Medications Acetaminophen (Acetaminophen 325 Mg Tablet) 650 mg PO Q6H PRN PRN Reason: Headache/Pain Mild Scale (1-3) Last Admin: 07/03/24 11:30 Dose: 650 mg Al Hydroxide/Mg Hydroxide (Magnesium Hydrox/Alum Hydrox 30 Ml Oral.Susp) 30 ml PO Q6H PRN PRN Reason: Heartburn/Nausea Calcium Carbonate (Calcium Carbonate 750 Mg Tab.Chew) 750 mg PO Q4H PRN PRN Reason: Heartburn Last Admin: 07/03/24 13:30 Dose: 750 mg Fluoxetine HCl (Fluoxetine Hcl 20 Mg Capsule) 60 mg PO DAILY SALOME Last Admin: 07/03/24 08:10 Dose: 60 mg Hydroxyzine HCl (Hydroxyzine Hcl 25 Mg Tablet) 25 mg PO Q6H PRN PRN Reason: Anxiety Last Admin: 07/01/24 23:19 Dose: 25 mg Magnesium Hydroxide (Milk Of Magnesia 30 Ml Oral.Susp) 30 ml PO DAILY PRN PRN Reason: Constipation Nicotine (Nicotine 21 Mg Patch.Td24) 21 mg TRANSDERMA DAILY PRN PRN Reason: smoking cessation Nicotine Polacrilex (Nicotine Polacrilex 2 Mg Gum) 4 mg BUCCAL Q2H PRN PRN Reason: Nicotine Cravings Olanzapine (Olanzapine 5 Mg Tablet) 5 mg PO TID PRN PRN Reason: agitation Trazodone HCl (Trazodone Hcl 25 Mg Halftab) 25 mg PO BEDTIME MRX1 PRN PRN Reason: Insomnia Allergies Allergies Allergy/AdvReac Type Severity Reaction Status Date / Time Penicillins [PENICILLINS] Allergy Intermediate RASH, Verified 06/30/24 22:45 VOMITING amoxicillin [From AUGMENTIN] Allergy Unknown HIVES/VOMIT Verified 06/30/24 22:45 clavulanic acid Allergy Unknown HIVES/VOMIT Verified 06/30/24 22:45 [From AUGMENTIN] clindamycin [CLINDAMYCIN] Allergy Unknown HIVES/VOMIT Verified 06/30/24 22:45 penicillamine AdvReac Mild Muscle Pain Verified 06/30/24 22:45 Erythromycin Allergy Unknown Abdominal Uncoded 06/30/24 22:45 Pain Assessment & Plan Assessment & Plan (1) Fracture of shaft of fifth metacarpal bone of right hand: Status: Acute Code(s): S62.326A - Displaced fracture of shaft of fifth metacarpal bone, right hand, initial encounter for closed fracture Assessment and Plan: 1. Fracture of 5th metacarpal shaft of right hand Status post CRPP DOS 06/24/2024 Patient appears to be recovering well postoperatively Patient is educated about the typical recovery course At this time, patient was removed from a splint, sutures are removed, and the patient was placed into a hard cast Patient is educated that due to the fact that we normally remove the splint at 2 weeks as opposed to 9 days, he will likely need to be in the cast with the pins in for approximately 3 weeks Patient was amenable to this plan Patient is educated on proper cast care and precautions Orthopedics will continue to follow this patient while he is admitted to the hospital, upon discharge patient should keep his previously scheduled postoperative appointments (2) Suicidal ideation: Status: Acute Code(s): R45.851 - Suicidal ideations (3) Bulimia: Status: Acute Code(s): F50.20 - Bulimia nervosa, unspecified (4) Depressive disorder: Status: Acute Code(s): F32.A - Depression, unspecified Plan 07/02: ortho consult for boxer's fracture. increase prozac to 60 mg daily. T/C rapid increase to 80 mg daily. 07/03: decrease trazodone PRN to 25 mg each. hand has been placed in a cast; pt to remain on 1:1 due to high risk of harm to self. nutrition consult for vomiting, bulimia, poor PO intake. Reason for continued inpatient stay Substantial Risk for: harm to self and inability to function Time Spent With Patient Time: Total time managing care of this patient today __25__ minutes.
[2024-07-03 20:00] VITALS: BP 117/62; PULSE 71; RESP 17; TEMP 37.4; O2SAT 97
[2024-07-03] MEDS: hydrOXYzine HCL 25 MG TABLET PO (21:08)
[2024-07-03] MEDS: traZODone HCL 25 MG HALFTAB PO (21:08)
[2024-07-04 07:00] VITALS: BMI 23.6
[2024-07-04 07:10] VITALS: BP 98/55; PULSE 62; RESP 14; TEMP 36.9; O2SAT 98
[2024-07-04] MEDS: FLUoxetine HCl 20 MG CAPSULE 60 MG PO (08:56)
--- NOTE | 2024-07-04 13:44 | HO.PSYCHPN ---
Subjective Subjective Date of Service: 07/04/24 Reason For Visit: SI Interim History: mood improved a bit, says talking to people, i e social contact, is helping. being not shut down. passive SI, no SIBI today for the first time since admission. vomited x 1 yesterday from too much intake. eating less per meal now, keeping down food better. Mental Status Exam Mental Status Exam Narrative: thin, tattooed forearms, adequately dressed and groomed. cooperative. no PMA/PMR. speech soft, nml amount, rate, latency. thoughts linear and logical. affect more flexible, normo-intense, non-labile. mood improved. passive SI, no SIBI. no HI/AVH expressed. Diagnostics Vital Signs (24Hr): Vital Signs - 24 hr 07/03/24 20:00 07/04/24 07:10 Temperature 99.4 F 98.5 F Pulse Rate 71 62 Respiratory Rate 17 14 Blood Pressure 117/62 98/55 L Pulse Oximetry 97 98 Oxygen Delivery Method Room Air Room Air BMI result Body Mass Index 23.6 Labs 07/01/24 15:01 07/01/24 15:01 Imaging Radiology Impressions: ITS Impressions Hand X-Ray 07/03/24 09:00 IMPRESSION: Status post surgical fixation with 2 orthopedic pins of a fifth mid metacarpal fracture. Improved fracture positioning/alignment. Intact hardware. Overlying dressing limits evaluation.. Electronically signed by: Sukh Cheung MD 07/03/2024 01:41 PM [facility] [place] Medications Medications Current Medications Acetaminophen (Acetaminophen 325 Mg Tablet) 650 mg PO Q6H PRN PRN Reason: Headache/Pain Mild Scale (1-3) Last Admin: 07/03/24 11:30 Dose: 650 mg Al Hydroxide/Mg Hydroxide (Magnesium Hydrox/Alum Hydrox 30 Ml Oral.Susp) 30 ml PO Q6H PRN PRN Reason: Heartburn/Nausea Calcium Carbonate (Calcium Carbonate 750 Mg Tab.Chew) 750 mg PO Q4H PRN PRN Reason: Heartburn Last Admin: 07/03/24 13:30 Dose: 750 mg Fluoxetine HCl (Fluoxetine Hcl 20 Mg Capsule) 60 mg PO DAILY SALOME Last Admin: 07/04/24 08:56 Dose: 60 mg Hydroxyzine HCl (Hydroxyzine Hcl 25 Mg Tablet) 25 mg PO Q6H PRN PRN Reason: Anxiety Last Admin: 07/03/24 21:08 Dose: 25 mg Magnesium Hydroxide (Milk Of Magnesia 30 Ml Oral.Susp) 30 ml PO DAILY PRN PRN Reason: Constipation Nicotine (Nicotine 21 Mg Patch.Td24) 21 mg TRANSDERMA DAILY PRN PRN Reason: smoking cessation Nicotine Polacrilex (Nicotine Polacrilex 2 Mg Gum) 4 mg BUCCAL Q2H PRN PRN Reason: Nicotine Cravings Olanzapine (Olanzapine 5 Mg Tablet) 5 mg PO TID PRN PRN Reason: agitation Trazodone HCl (Trazodone Hcl 25 Mg Halftab) 25 mg PO BEDTIME MRX1 PRN PRN Reason: Insomnia Last Admin: 07/03/24 21:08 Dose: 25 mg Allergies Allergies Allergy/AdvReac Type Severity Reaction Status Date / Time Penicillins [PENICILLINS] Allergy Intermediate RASH, Verified 06/30/24 22:45 VOMITING amoxicillin [From AUGMENTIN] Allergy Unknown HIVES/VOMIT Verified 06/30/24 22:45 clavulanic acid Allergy Unknown HIVES/VOMIT Verified 06/30/24 22:45 [From AUGMENTIN] clindamycin [CLINDAMYCIN] Allergy Unknown HIVES/VOMIT Verified 06/30/24 22:45 penicillamine AdvReac Mild Muscle Pain Verified 06/30/24 22:45 Erythromycin Allergy Unknown Abdominal Uncoded 06/30/24 22:45 Pain Assessment & Plan Assessment & Plan (1) Fracture of shaft of fifth metacarpal bone of right hand: Status: Acute Code(s): S62.326A - Displaced fracture of shaft of fifth metacarpal bone, right hand, initial encounter for closed fracture Assessment and Plan: 1. Fracture of 5th metacarpal shaft of right hand Status post CRPP DOS 06/24/2024 Patient appears to be recovering well postoperatively Patient is educated about the typical recovery course At this time, patient was removed from a splint, sutures are removed, and the patient was placed into a hard cast Patient is educated that due to the fact that we normally remove the splint at 2 weeks as opposed to 9 days, he will likely need to be in the cast with the pins in for approximately 3 weeks Patient was amenable to this plan Patient is educated on proper cast care and precautions Orthopedics will continue to follow this patient while he is admitted to the hospital, upon discharge patient should keep his previously scheduled postoperative appointments (2) Suicidal ideation: Status: Acute Code(s): R45.851 - Suicidal ideations (3) Bulimia: Status: Acute Code(s): F50.20 - Bulimia nervosa, unspecified (4) Depressive disorder: Status: Acute Code(s): F32.A - Depression, unspecified Plan 07/02: ortho consult for boxer's fracture. increase prozac to 60 mg daily. T/C rapid increase to 80 mg daily. 07/03: decrease trazodone PRN to 25 mg each. hand has been placed in a cast; pt to remain on 1:1 due to high risk of harm to self. nutrition consult for vomiting, bulimia, poor PO intake. 07/04: socialization improving mood. SI now passive only, no SIBI for the first time today. continue current mgmt. Reason for continued inpatient stay Substantial Risk for: harm to self and rapid decompensation Time Spent With Patient Time: Total time managing care of this patient today __25__ minutes.
[2024-07-04 19:45] VITALS: BP 131/60; PULSE 60; RESP 16; TEMP 36.9; O2SAT 98
[2024-07-05] MEDS: hydrOXYzine HCL 25 MG TABLET PO ×2 (04:33→20:38)
[2024-07-05 07:39] VITALS: BP 130/79; PULSE 61; RESP 16; TEMP 36.8; O2SAT 98
[2024-07-05] MEDS: FLUoxetine HCl 20 MG CAPSULE 60 MG PO (08:31)
--- NOTE | 2024-07-05 12:52 | P.PNPSI_ITS ---
Subjective Subjective Date of Service: 07/05/24 Reason For Visit: SI Interim History: less anxious and depressed. OCD a little better. future-oriented. no SI/SIBI today. plannig to discharge next or . per staff, dep/anx, taking meds. passive SI yesterday. socializing. slept about 5 hours. Mental Status Exam Mental Status Exam Narrative: thin, tattooed forearms, adequately dressed and groomed. cooperative. no PMA/PMR. speech soft, nml amount, rate, latency. thoughts linear and logical. affect more flexible, normo-intense, non-labile. mood just chill. no SI/SIBI. no HI/AVH. Diagnostics Vital Signs (24Hr): Vital Signs - 24 hr 07/04/24 19:45 07/05/24 07:39 Temperature 98.4 F 98.2 F Pulse Rate 60 61 Respiratory Rate 16 16 Blood Pressure 131/60 130/79 Pulse Oximetry 98 98 Oxygen Delivery Method Room Air Room Air BMI result Body Mass Index 23.6 Labs 07/01/24 15:01 07/01/24 15:01 Imaging Radiology Impressions: ITS Impressions Hand X-Ray 07/03/24 09:00 IMPRESSION: Status post surgical fixation with 2 orthopedic pins of a fifth mid metacarpal fracture. Improved fracture positioning/alignment. Intact hardware. Overlying dressing limits evaluation.. Electronically signed by: Sukh Cheung MD 07/03/2024 01:41 PM [facility] [place] Workstation: [id number] Medications Medications Current Medications Acetaminophen (Acetaminophen 325 Mg Tablet) 650 mg PO Q6H PRN PRN Reason: Headache/Pain Mild Scale (1-3) Last Admin: 07/03/24 11:30 Dose: 650 mg Al Hydroxide/Mg Hydroxide (Magnesium Hydrox/Alum Hydrox 30 Ml Oral.Susp) 30 ml PO Q6H PRN PRN Reason: Heartburn/Nausea Calcium Carbonate (Calcium Carbonate 750 Mg Tab.Chew) 750 mg PO Q4H PRN PRN Reason: Heartburn Last Admin: 07/03/24 13:30 Dose: 750 mg Fluoxetine HCl (Fluoxetine Hcl 20 Mg Capsule) 60 mg PO DAILY SALOME Last Admin: 07/05/24 08:31 Dose: 60 mg Hydroxyzine HCl (Hydroxyzine Hcl 25 Mg Tablet) 25 mg PO Q6H PRN PRN Reason: Anxiety Last Admin: 07/05/24 04:33 Dose: 25 mg Magnesium Hydroxide (Milk Of Magnesia 30 Ml Oral.Susp) 30 ml PO DAILY PRN PRN Reason: Constipation Nicotine (Nicotine 21 Mg Patch.Td24) 21 mg TRANSDERMA DAILY PRN PRN Reason: smoking cessation Nicotine Polacrilex (Nicotine Polacrilex 2 Mg Gum) 4 mg BUCCAL Q2H PRN PRN Reason: Nicotine Cravings Olanzapine (Olanzapine 5 Mg Tablet) 5 mg PO TID PRN PRN Reason: agitation Trazodone HCl (Trazodone Hcl 25 Mg Halftab) 25 mg PO BEDTIME MRX1 PRN PRN Reason: Insomnia Last Admin: 07/03/24 21:08 Dose: 25 mg Allergies Allergies Allergy/AdvReac Type Severity Reaction Status Date / Time Penicillins [PENICILLINS] Allergy Intermediate RASH, Verified 06/30/24 22:45 VOMITING amoxicillin [From AUGMENTIN] Allergy Unknown HIVES/VOMIT Verified 06/30/24 22:45 clavulanic acid Allergy Unknown HIVES/VOMIT Verified 06/30/24 22:45 [From AUGMENTIN] clindamycin [CLINDAMYCIN] Allergy Unknown HIVES/VOMIT Verified 06/30/24 22:45 penicillamine AdvReac Mild Muscle Pain Verified 06/30/24 22:45 Erythromycin Allergy Unknown Abdominal Uncoded 06/30/24 22:45 Pain Assessment & Plan Assessment & Plan (1) Fracture of shaft of fifth metacarpal bone of right hand: Status: Acute Code(s): S62.326A - Displaced fracture of shaft of fifth metacarpal bone, right hand, initial encounter for closed fracture Assessment and Plan: 1. Fracture of 5th metacarpal shaft of right hand Status post CRPP DOS 06/24/2024 Patient appears to be recovering well postoperatively Patient is educated about the typical recovery course At this time, patient was removed from a splint, sutures are removed, and the patient was placed into a hard cast Patient is educated that due to the fact that we normally remove the splint at 2 weeks as opposed to 9 days, he will likely need to be in the cast with the pins in for approximately 3 weeks Patient was amenable to this plan Patient is educated on proper cast care and precautions Orthopedics will continue to follow this patient while he is admitted to the hospital, upon discharge patient should keep his previously scheduled postoperative appointments (2) Suicidal ideation: Status: Acute Code(s): R45.851 - Suicidal ideations (3) Bulimia: Status: Acute Code(s): F50.20 - Bulimia nervosa, unspecified (4) Depressive disorder: Status: Acute Code(s): F32.A - Depression, unspecified Plan 07/02: ortho consult for boxer's fracture. increase prozac to 60 mg daily. T/C rapid increase to 80 mg daily. 07/03: decrease trazodone PRN to 25 mg each. hand has been placed in a cast; pt to remain on 1:1 due to high risk of harm to self. nutrition consult for vomiting, bulimia, poor PO intake. 07/04: socialization improving mood. SI now passive only, no SIBI for the first time today. continue current mgmt. 07/05: no SI/SIBI. changed to Q5s. continue current mgmt. planning for or discharge. per ortho, appointment on monday was to cast him, so that appointment is no longer needed. Reason for continued inpatient stay Substantial Risk for: harm to self and rapid decompensation Time Spent With Patient Time: Total time managing care of this patient today _35___ minutes.
[2024-07-05 19:50] VITALS: BP 128/69; PULSE 64; RESP 16; TEMP 37; O2SAT 100
[2024-07-05] MEDS: traZODone HCL 25 MG HALFTAB PO (21:36)
--- NOTE | 2024-07-06 07:38 | HO.PSYCHPN ---
Subjective Subjective Date of Service: 07/06/24 Reason For Visit: SI Interim History: attempted to engage patient a couple of times during the day, but sleeping and some difficulty rousing. Has been isolative, flat and slowly improving as per nursing. Medication Compliance: Yes Side effects from medications: No Attending Groups: Intermittent Review of Systems Acute medical concerns: No Review of Systems Review of Systems nothing noted Mental Status Exam Mental Status Exam Narrative: Unable to engage patient has sleeping through the morning and difficulty rousing. Diagnostics Vital Signs (24Hr): Vital Signs - 24 hr 07/05/24 07:39 07/05/24 19:50 Temperature 98.2 F 98.6 F Pulse Rate 61 64 Respiratory Rate 16 16 Blood Pressure 130/79 128/69 Pulse Oximetry 98 100 Oxygen Delivery Method Room Air Room Air BMI result Body Mass Index 23.6 Labs 07/01/24 15:01 07/01/24 15:01 Imaging Radiology Impressions: ITS Impressions Hand X-Ray 07/03/24 09:00 IMPRESSION: Status post surgical fixation with 2 orthopedic pins of a fifth mid metacarpal fracture. Improved fracture positioning/alignment. Intact hardware. Overlying dressing limits evaluation.. Electronically signed by: Sukh Cheung MD 07/03/2024 01:41 PM EST [facility] Medications Medications Current Medications Acetaminophen (Acetaminophen 325 Mg Tablet) 650 mg PO Q6H PRN PRN Reason: Headache/Pain Mild Scale (1-3) Last Admin: 07/03/24 11:30 Dose: 650 mg Al Hydroxide/Mg Hydroxide (Magnesium Hydrox/Alum Hydrox 30 Ml Oral.Susp) 30 ml PO Q6H PRN PRN Reason: Heartburn/Nausea Calcium Carbonate (Calcium Carbonate 750 Mg Tab.Chew) 750 mg PO Q4H PRN PRN Reason: Heartburn Last Admin: 07/03/24 13:30 Dose: 750 mg Fluoxetine HCl (Fluoxetine Hcl 20 Mg Capsule) 60 mg PO DAILY SALOME Last Admin: 07/05/24 08:31 Dose: 60 mg Hydroxyzine HCl (Hydroxyzine Hcl 25 Mg Tablet) 25 mg PO Q6H PRN PRN Reason: Anxiety Last Admin: 07/05/24 20:38 Dose: 25 mg Magnesium Hydroxide (Milk Of Magnesia 30 Ml Oral.Susp) 30 ml PO DAILY PRN PRN Reason: Constipation Nicotine (Nicotine 21 Mg Patch.Td24) 21 mg TRANSDERMA DAILY PRN PRN Reason: smoking cessation Nicotine Polacrilex (Nicotine Polacrilex 2 Mg Gum) 4 mg BUCCAL Q2H PRN PRN Reason: Nicotine Cravings Olanzapine (Olanzapine 5 Mg Tablet) 5 mg PO TID PRN PRN Reason: agitation Trazodone HCl (Trazodone Hcl 25 Mg Halftab) 25 mg PO BEDTIME MRX1 PRN PRN Reason: Insomnia Last Admin: 07/05/24 21:36 Dose: 25 mg Allergies Allergies Allergy/AdvReac Type Severity Reaction Status Date / Time Penicillins [PENICILLINS] Allergy Intermediate RASH, Verified 06/30/24 22:45 VOMITING amoxicillin [From AUGMENTIN] Allergy Unknown HIVES/VOMIT Verified 06/30/24 22:45 clavulanic acid Allergy Unknown HIVES/VOMIT Verified 06/30/24 22:45 [From AUGMENTIN] clindamycin [CLINDAMYCIN] Allergy Unknown HIVES/VOMIT Verified 06/30/24 22:45 penicillamine AdvReac Mild Muscle Pain Verified 06/30/24 22:45 Erythromycin Allergy Unknown Abdominal Uncoded 06/30/24 22:45 Pain Assessment & Plan Assessment & Plan (1) Fracture of shaft of fifth metacarpal bone of right hand: Status: Acute Code(s): S62.326A - Displaced fracture of shaft of fifth metacarpal bone, right hand, initial encounter for closed fracture Assessment and Plan: 1. Fracture of 5th metacarpal shaft of right hand Status post CRPP DOS 06/24/2024 Patient appears to be recovering well postoperatively Patient is educated about the typical recovery course At this time, patient was removed from a splint, sutures are removed, and the patient was placed into a hard cast Patient is educated that due to the fact that we normally remove the splint at 2 weeks as opposed to 9 days, he will likely need to be in the cast with the pins in for approximately 3 weeks Patient was amenable to this plan Patient is educated on proper cast care and precautions Orthopedics will continue to follow this patient while he is admitted to the hospital, upon discharge patient should keep his previously scheduled postoperative appointments (2) Suicidal ideation: Status: Acute Code(s): R45.851 - Suicidal ideations (3) Bulimia: Status: Acute Code(s): F50.20 - Bulimia nervosa, unspecified (4) Depressive disorder: Status: Acute Code(s): F32.A - Depression, unspecified Plan 07/02: ortho consult for boxer's fracture. increase prozac to 60 mg daily. T/C rapid increase to 80 mg daily. 07/03: decrease trazodone PRN to 25 mg each. hand has been placed in a cast; pt to remain on 1:1 due to high risk of harm to self. nutrition consult for vomiting, bulimia, poor PO intake. 07/04: socialization improving mood. SI now passive only, no SIBI for the first time today. continue current mgmt. 07/05: no SI/SIBI. changed to Q5s. continue current mgmt. planning for or discharge. per ortho, appointment on monday was to cast him, so that appointment is no longer needed. 07/06/2024: No changes Reason for continued inpatient stay Substantial Risk for: rapid decompensation Time Spent With Patient Time: Total time managing care of this patient today ____ minutes.
[2024-07-06 07:59] VITALS: BP 114/61; PULSE 55; RESP 14; TEMP 36.9; O2SAT 97
[2024-07-06] MEDS: FLUoxetine HCl 20 MG CAPSULE 60 MG PO (09:14)
[2024-07-06 19:20] VITALS: BP 124/66; PULSE 71; RESP 16; TEMP 36.9; O2SAT 99
[2024-07-06] MEDS: hydrOXYzine HCL 25 MG TABLET PO (22:42)
[2024-07-06] MEDS: traZODone HCL 25 MG HALFTAB PO (22:42)
[2024-07-07 08:00] VITALS: BP 113/67; PULSE 58; RESP 18; TEMP 36.6; O2SAT 97
[2024-07-07] MEDS: FLUoxetine HCl 20 MG CAPSULE 60 MG PO (08:14)
--- NOTE | 2024-07-07 10:13 | HO.PSYCHPN ---
Subjective Subjective Date of Service: 07/07/24 Reason For Visit: SI Interim History: Out of room a lot more today. Pleasant and engaged. Day area. Overall lot better. Not depressed, anxiety much better, suicidal thoughts resolved.Thankful community referrals including [facility]. No med concerns. Medication Compliance: Yes Side effects from medications: No Attending Groups: Yes Review of Systems Acute medical concerns: No Review of Systems Review of Systems nothing noted Mental Status Exam Mental Status Exam Narrative: pleasant. Engaged. Appropriately presented. Cast in place. Overall euthymic. No SI, HI, agitation or psychosis. Insight judgment good Diagnostics Vital Signs (24Hr): Vital Signs - 24 hr 07/06/24 19:20 07/07/24 08:00 Temperature 98.5 F 97.9 F Pulse Rate 71 58 Respiratory Rate 16 18 Blood Pressure 124/66 113/67 Pulse Oximetry 99 97 Oxygen Delivery Method Room Air Room Air BMI result Body Mass Index 23.6 Labs 07/01/24 15:01 07/01/24 15:01 Imaging Radiology Impressions: ITS Impressions Hand X-Ray 07/03/24 09:00 IMPRESSION: Status post surgical fixation with 2 orthopedic pins of a fifth mid metacarpal fracture. Improved fracture positioning/alignment. Intact hardware. Overlying dressing limits evaluation.. Electronically signed by: Sukh Cheung MD 07/03/2024 01:41 PM [facility] Medications Medications Current Medications Acetaminophen (Acetaminophen 325 Mg Tablet) 650 mg PO Q6H PRN PRN Reason: Headache/Pain Mild Scale (1-3) Last Admin: 07/03/24 11:30 Dose: 650 mg Al Hydroxide/Mg Hydroxide (Magnesium Hydrox/Alum Hydrox 30 Ml Oral.Susp) 30 ml PO Q6H PRN PRN Reason: Heartburn/Nausea Calcium Carbonate (Calcium Carbonate 750 Mg Tab.Chew) 750 mg PO Q4H PRN PRN Reason: Heartburn Last Admin: 07/03/24 13:30 Dose: 750 mg Fluoxetine HCl (Fluoxetine Hcl 20 Mg Capsule) 60 mg PO DAILY SALOME Last Admin: 07/07/24 08:14 Dose: 60 mg Hydroxyzine HCl (Hydroxyzine Hcl 25 Mg Tablet) 25 mg PO Q6H PRN PRN Reason: Anxiety Last Admin: 07/06/24 22:42 Dose: 25 mg Magnesium Hydroxide (Milk Of Magnesia 30 Ml Oral.Susp) 30 ml PO DAILY PRN PRN Reason: Constipation Nicotine (Nicotine 21 Mg Patch.Td24) 21 mg TRANSDERMA DAILY PRN PRN Reason: smoking cessation Nicotine Polacrilex (Nicotine Polacrilex 2 Mg Gum) 4 mg BUCCAL Q2H PRN PRN Reason: Nicotine Cravings Olanzapine (Olanzapine 5 Mg Tablet) 5 mg PO TID PRN PRN Reason: agitation Trazodone HCl (Trazodone Hcl 25 Mg Halftab) 25 mg PO BEDTIME MRX1 PRN PRN Reason: Insomnia Last Admin: 07/06/24 22:42 Dose: 25 mg Allergies Allergies Allergy/AdvReac Type Severity Reaction Status Date / Time Penicillins [PENICILLINS] Allergy Intermediate RASH, Verified 06/30/24 22:45 VOMITING amoxicillin [From AUGMENTIN] Allergy Unknown HIVES/VOMIT Verified 06/30/24 22:45 clavulanic acid Allergy Unknown HIVES/VOMIT Verified 06/30/24 22:45 [From AUGMENTIN] clindamycin [CLINDAMYCIN] Allergy Unknown HIVES/VOMIT Verified 06/30/24 22:45 penicillamine AdvReac Mild Muscle Pain Verified 06/30/24 22:45 Erythromycin Allergy Unknown Abdominal Uncoded 06/30/24 22:45 Pain Assessment & Plan Assessment & Plan (1) Fracture of shaft of fifth metacarpal bone of right hand: Status: Acute Code(s): S62.326A - Displaced fracture of shaft of fifth metacarpal bone, right hand, initial encounter for closed fracture Assessment and Plan: 1. Fracture of 5th metacarpal shaft of right hand Status post CRPP DOS 06/24/2024 Patient appears to be recovering well postoperatively Patient is educated about the typical recovery course At this time, patient was removed from a splint, sutures are removed, and the patient was placed into a hard cast Patient is educated that due to the fact that we normally remove the splint at 2 weeks as opposed to 9 days, he will likely need to be in the cast with the pins in for approximately 3 weeks Patient was amenable to this plan Patient is educated on proper cast care and precautions Orthopedics will continue to follow this patient while he is admitted to the hospital, upon discharge patient should keep his previously scheduled postoperative appointments (2) Suicidal ideation: Status: Acute Code(s): R45.851 - Suicidal ideations (3) Bulimia: Status: Acute Code(s): F50.20 - Bulimia nervosa, unspecified (4) Depressive disorder: Status: Acute Code(s): F32.A - Depression, unspecified Plan 07/02: ortho consult for boxer's fracture. increase prozac to 60 mg daily. T/C rapid increase to 80 mg daily. 07/03: decrease trazodone PRN to 25 mg each. hand has been placed in a cast; pt to remain on 1:1 due to high risk of harm to self. nutrition consult for vomiting, bulimia, poor PO intake. 07/04: socialization improving mood. SI now passive only, no SIBI for the first time today. continue current mgmt. 07/05: no SI/SIBI. changed to Q5s. continue current mgmt. planning for or discharge. per ortho, appointment on monday was to cast him, so that appointment is no longer needed. 07/07/2024: No changes Reason for continued inpatient stay Substantial Risk for: rapid decompensation Time Spent With Patient Time: Total time managing care of this patient today ____ minutes.
[2024-07-07 19:45] VITALS: BP 122/68; PULSE 78; RESP 18; TEMP 36.8; O2SAT 99
[2024-07-07] MEDS: hydrOXYzine HCL 25 MG TABLET PO (20:20)
[2024-07-07] MEDS: traZODone HCL 25 MG HALFTAB PO (20:20)
[2024-07-08 08:00] VITALS: BP 109/57; PULSE 59; RESP 12; TEMP 36.9; O2SAT 98
[2024-07-08] MEDS: FLUoxetine HCl 20 MG CAPSULE 60 MG PO (08:28)
[2024-07-08] MEDS: Doxycycline Monohydrate 100 MG CAPSULE PO ×2 (12:36→20:09)
--- NOTE | 2024-07-08 13:34 | P.PNPSI_ITS ---
Subjective Subjective Date of Service: 07/08/24 Reason For Visit: SI Interim History: calm, cooperative. feeling improved, positive, ready for discharge. is concerned about some pain he's been having at pin site and whether he should be on doxy or not. reporting MNA from pain, random occurrence of pain throughout the day. per staff, future-oriented. taking meds. slept all NOC with atarax and traz. per ortho, they will see him tomorrow around lunchtime and remove cast to ensure not infected. Mental Status Exam Mental Status Exam Narrative: thin, tattooed forearms, adequately dressed and groomed. cooperative. no PMA/PMR. speech soft, nml amount, rate, latency. thoughts linear and logical. affect full range, normo-intense, non-labile. mood good. relaxed. positive. no SI/SIBI. no HI/AVH. Diagnostics Vital Signs (24Hr): Vital Signs - 24 hr 07/07/24 19:45 07/08/24 08:00 Temperature 98.2 F 98.5 F Pulse Rate 78 59 Respiratory Rate 18 12 Blood Pressure 122/68 109/57 L Pulse Oximetry 99 98 Oxygen Delivery Method Room Air Room Air BMI result Body Mass Index 23.6 Labs 07/01/24 15:01 07/01/24 15:01 Imaging Radiology Impressions: ITS Impressions Hand X-Ray 07/03/24 09:00 IMPRESSION: Status post surgical fixation with 2 orthopedic pins of a fifth mid metacarpal fracture. Improved fracture positioning/alignment. Intact hardware. Overlying dressing limits evaluation.. Electronically signed by: Sukh Cheung MD 07/03/2024 01:41 PM [facility] Medications Medications Current Medications Acetaminophen (Acetaminophen 325 Mg Tablet) 650 mg PO Q6H PRN PRN Reason: Headache/Pain Mild Scale (1-3) Last Admin: 07/03/24 11:30 Dose: 650 mg Al Hydroxide/Mg Hydroxide (Magnesium Hydrox/Alum Hydrox 30 Ml Oral.Susp) 30 ml PO Q6H PRN PRN Reason: Heartburn/Nausea Calcium Carbonate (Calcium Carbonate 750 Mg Tab.Chew) 750 mg PO Q4H PRN PRN Reason: Heartburn Last Admin: 07/03/24 13:30 Dose: 750 mg Doxycycline Monohydrate (Doxycycline Monohydrate 100 Mg Capsule) 100 mg PO BID [facility] Last Admin: 07/08/24 12:36 Dose: 100 mg Fluoxetine HCl (Fluoxetine Hcl 20 Mg Capsule) 60 mg PO DAILY [facility] Last Admin: 07/08/24 08:28 Dose: 60 mg Hydroxyzine HCl (Hydroxyzine Hcl 25 Mg Tablet) 25 mg PO Q6H PRN PRN Reason: Anxiety Last Admin: 07/07/24 20:20 Dose: 25 mg Magnesium Hydroxide (Milk Of Magnesia 30 Ml Oral.Susp) 30 ml PO DAILY PRN PRN Reason: Constipation Nicotine (Nicotine 21 Mg Patch.Td24) 21 mg TRANSDERMA DAILY PRN PRN Reason: smoking cessation Nicotine Polacrilex (Nicotine Polacrilex 2 Mg Gum) 4 mg BUCCAL Q2H PRN PRN Reason: Nicotine Cravings Olanzapine (Olanzapine 5 Mg Tablet) 5 mg PO TID PRN PRN Reason: agitation Trazodone HCl (Trazodone Hcl 25 Mg Halftab) 25 mg PO BEDTIME MRX1 PRN PRN Reason: Insomnia Last Admin: 07/07/24 20:20 Dose: 25 mg Allergies Allergies Allergy/AdvReac Type Severity Reaction Status Date / Time Penicillins [PENICILLINS] Allergy Intermediate RASH, Verified 06/30/24 22:45 VOMITING amoxicillin [From AUGMENTIN] Allergy Unknown HIVES/VOMIT Verified 06/30/24 22:45 clavulanic acid Allergy Unknown HIVES/VOMIT Verified 06/30/24 22:45 [From AUGMENTIN] clindamycin [CLINDAMYCIN] Allergy Unknown HIVES/VOMIT Verified 06/30/24 22:45 penicillamine AdvReac Mild Muscle Pain Verified 06/30/24 22:45 Erythromycin Allergy Unknown Abdominal Uncoded 06/30/24 22:45 Pain Assessment & Plan Assessment & Plan (1) Fracture of shaft of fifth metacarpal bone of right hand: Status: Acute Code(s): S62.326A - Displaced fracture of shaft of fifth metacarpal bone, right hand, initial encounter for closed fracture Assessment and Plan: 1. Fracture of 5th metacarpal shaft of right hand Status post CRPP DOS 06/24/2024 Patient appears to be recovering well postoperatively Patient is educated about the typical recovery course At this time, patient was removed from a splint, sutures are removed, and the patient was placed into a hard cast Patient is educated that due to the fact that we normally remove the splint at 2 weeks as opposed to 9 days, he will likely need to be in the cast with the pins in for approximately 3 weeks Patient was amenable to this plan Patient is educated on proper cast care and precautions Orthopedics will continue to follow this patient while he is admitted to the hospital, upon discharge patient should keep his previously scheduled postoperative appointments (2) Suicidal ideation: Status: Acute Code(s): R45.851 - Suicidal ideations (3) Bulimia: Status: Acute Code(s): F50.20 - Bulimia nervosa, unspecified (4) Depressive disorder: Status: Acute Code(s): F32.A - Depression, unspecified Plan 07/02: ortho consult for boxer's fracture. increase prozac to 60 mg daily. T/C rapid increase to 80 mg daily. 07/03: decrease trazodone PRN to 25 mg each. hand has been placed in a cast; pt to remain on 1:1 due to high risk of harm to self. nutrition consult for vomiting, bulimia, poor PO intake. 07/04: socialization improving mood. SI now passive only, no SIBI for the first time today. continue current mgmt. 07/05: no SI/SIBI. changed to Q5s. continue current mgmt. planning for or discharge. per ortho, appointment on monday was to cast him, so that appointment is no longer needed. 07/07/2024: No changes 07/08: feeling ready for discharge tomorrow. ortho will see him tomorrow to remove cast and examine hand. planning for mons discharge. doxy restarted today. Reason for continued inpatient stay Substantial Risk for: rapid decompensation Time Spent With Patient Time: Total time managing care of this patient today __35__ minutes.
[2024-07-08 20:00] VITALS: BP 116/65; PULSE 60; RESP 16; TEMP 36.9; O2SAT 100
[2024-07-08] MEDS: traZODone HCL 25 MG HALFTAB PO (20:09)
[2024-07-08] MEDS: hydrOXYzine HCL 25 MG TABLET PO (20:09)
[2024-07-09] MEDS: Doxycycline Monohydrate 100 MG CAPSULE PO ×2 (09:27→21:11)
[2024-07-09] MEDS: FLUoxetine HCl 20 MG CAPSULE 60 MG PO (09:27)
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
--- NOTE | 2024-07-09 14:53 | PM.PNORT ---
Subjective Subjective Date of Service: 07/09/24 Interval history: Patient is a 18-year-old who is status post CRPP and I and D of right 5th metacarpal fracture, DOS 06/24/2024 Today, patient reports that had noticed some increasing pain yesterday, as well as intermittent numbness and tingling, but states that this has resolved today Patient does state that the antibiotics given to him after surgery has been discontinued on admission, but were resumed yesterday Patient expressed concern that it may have led to an infection, and that may be causing his increased pain, and he would like to be re-evaluated to see if this is case No other acute complaints or concerns at this time. Physical Exam Vital Signs: Vital Signs: Last Vital Signs Temp 98.4 F 07/08/24 20:00 Pulse 60 07/08/24 20:00 Resp 16 07/08/24 20:00 BP 116/65 07/08/24 20:00 Pulse Ox 100 07/08/24 20:00 O2 Del Method Room Air 07/08/24 20:00 BMI result Body Mass Index 23.6 Extrem: Other: Patient is alert, oriented, and in no acute distress. Neuro: Normal sensation of the tips of all digits of the right hand at this time Vascular: Cap refill brisk Pain: Patient reports no tenderness to palpation of the right 5th metacarpal Patient does report no tenderness to palpation about the pin sites ROM: Patient is able to make a closed fist and extend all other digits of the right hand fully, but is unable to participate and range of motion of the right 5th digit due to pin placement Skin: Incision site on dorsal aspect of right hand over the 5th metacarpal clean, dry, intact, sutures in place No evidence of infection of pin sites or incision General: No erythema, edema, ecchymosis noted Psych: Appears grossly normal Affect normal Attitude cooperative Procedures Date of Service Date of Service: 07/09/24 Orthopedic Splinting/Casting Injury #1: Additional comments: Short-arm finger spica cast with ring and small fingers involved Progress Note: A&P Assessment and plan (1) Fracture of shaft of fifth metacarpal bone of right hand: Status: Acute Plan 1. Right 5th metacarpal fracture status post CRPP & I and D DOS 06/24/2024 Patient appears to be recovering well postoperatively Patient is educated about the typical recovery course At this time, cast is replaced onto the patient's right hand and wrist Patient is educated about proper cast care and precautions Patient is educated about the signs and symptoms worrisome for potential infection, and then he should call our office upon discharge if he experiences any of the symptoms Patient was amenable to this plan Patient will follow-up on 07/23/2024 in our office with repeat x-rays for reexamination, anticipate pin removal at that time, sooner with any acute concerns Time Spent With Patient Time: Total time managing care of this patient today ____ minutes. Quality Stroke Does the patient have a stroke diagnosis?: No VTE Prior VTE?: No VTE Risk Level:: Medical - low VTE Device Contraindication: Treatment Not Indicated VTE Drug Contraindication: Treatment Not Indicated
[2024-07-09 20:00] VITALS: BP 109/55; PULSE 69; RESP 14; TEMP 37.2; O2SAT 98
[2024-07-09] MEDS: traZODone HCL 25 MG HALFTAB PO (21:11)
[2024-07-09] MEDS: hydrOXYzine HCL 25 MG TABLET PO (21:11)
[2024-07-10 08:00] VITALS: BP 120/56; PULSE 93; RESP 14; TEMP 36.8; O2SAT 97
[2024-07-10] MEDS: Doxycycline Monohydrate 100 MG CAPSULE PO (08:49)
[2024-07-10] MEDS: FLUoxetine HCl 20 MG CAPSULE 60 MG PO (08:49)
== END 2024-07-10 12:54 | disposition home or self-care (01) | DRG 751 ==
LOC: HO.ED 23:25 → HO.PADLT16 07-01 19:24
PROVIDERS: Admitting Provider Psychiatry & Neurology Psychiatry; Emergency Provider Emergency Medicine; PCP Pediatrics; Visit Provider Psychiatry & Neurology Psychiatry
DX: F32.A Depression, unspecified (principal); F50.20 Bulimia nervosa, unspecified; R45.851 Suicidal ideations; X58.XXXA Exposure to other specified factors, initial encounter; S62.326A Displaced fracture of shaft of fifth metacarpal bone, right hand, initial encounter for closed fracture; Z91.52 Personal history of nonsuicidal self-harm; Z68.22 Body mass index [BMI] 22.0-22.9, adult; Z79.899 Other long term (current) drug therapy
CPT/HCPCS: 36415; 73130; 80053; 80307; 81001; 85027; 99285

== ENCOUNTER → 2024-07-01 19:10 | Outpatient (BNV) | payer OTHER, SELFPAY | PROVIDERS: Admitting Provider Psychiatry & Neurology Psychiatry; Emergency Provider Emergency Medicine; PCP Pediatrics | DX: S62.326A Displaced fracture of shaft of fifth metacarpal bone, right hand, initial encounter for closed fracture (principal) | CPT/HCPCS: 99024 ==

== ENCOUNTER → 2024-07-01 19:10 | Outpatient (BNV) | payer OTHER, SELFPAY | PROVIDERS: Admitting Provider Psychiatry & Neurology Psychiatry; Emergency Provider Emergency Medicine; PCP Pediatrics; Visit Provider Psychiatry & Neurology Psychiatry | DX: F32.2 Major depressive disorder, single episode, severe without psychotic features (principal); R45.851 Suicidal ideations; F50.20 Bulimia nervosa, unspecified; S62.326A Displaced fracture of shaft of fifth metacarpal bone, right hand, initial encounter for closed fracture | CPT/HCPCS: 99231; 99232; 99233 ==

== ENCOUNTER 2024-07-23 09:05 | Outpatient (REF) | payer OTHER, SELFPAY ==
--- NOTE | ~2024-07-23 | XR_ITS ---
EXAMINATION: XR HAND RIGHT CLINICAL INFORMATION: Pain in right hand M79.641. Out of cast pins in hand. COMPARISON: XR Right hand 07/03/2024 TECHNIQUE: PA, lateral, and oblique views of the right hand. FINDINGS: Status post surgical fixation of a mildly displaced oblique fracture of the mid fifth metacarpal with 2 orthopedic pins. Cast has been removed. Alignment maintained. There is some evidence of healing, although fracture line is still visible. XR/XR hand RT min 3V IMPRESSION: Status post surgical fixation of a mildly displaced oblique fracture of the mid fifth metacarpal with 2 orthopedic pins Electronically signed by: Annie Morgan MD 08/13/2024 11:11 AM EST
== END 2024-07-23 09:06 | disposition home or self-care (01) ==
LOC: HO.HOSX 09:05
DX: S62.326D Displaced fracture of shaft of fifth metacarpal bone, right hand, subsequent encounter for fracture with routine healing (principal)
CPT/HCPCS: 29085; 73130

== ENCOUNTER 2024-07-23 09:15 | Outpatient (AMB) | payer OTHER, SELFPAY ==
--- NOTE | 2024-07-23 09:38 | A.OFFVIS_ITS ---
Vital Signs 07/23/24 09:46 Height 5 ft 9 in Weight 158 lb BMI 23.3 Handedness Right Intake Visit Reasons: PO: Rt 5th MC CRPP w/ AR 06/24/24 Intake Note: Cooper is a 18 year old right hand dominant male who presents today for a post operative visit s/p right open 5th metacarpal fracture CRPP and I&D of right open 5th metacarpal fracture DOS: 06/24/24 w/ Dr Hess. Patient reports he has discomfort from his hand being confined in the cast. He denies numbness and tingling. Allergies Penicillins [PENICILLINS] Allergy (Intermediate, Verified 07/23/24 09:46) RASH, VOMITING amoxicillin [From AUGMENTIN] Allergy (Unknown, Verified 07/23/24 09:46) HIVES/VOMIT clavulanic acid [From AUGMENTIN] Allergy (Unknown, Verified 07/23/24 09:46) HIVES/VOMIT clindamycin [CLINDAMYCIN] Allergy (Unknown, Verified 07/23/24 09:46) HIVES/VOMIT penicillamine Adverse Reaction (Mild, Verified 07/23/24 09:46) Muscle Pain Erythromycin Allergy (Unknown, Uncoded 07/23/24 09:46) Abdominal Pain HPI HPI PO: Rt 5th MC CRPP w/ AR 06/24/24: Details: Patient is a 18-year-old male who presents follow-up evaluation of right 5th metacarpal CRPP, DOS 06/24/[address] Hess. Today, the patient reports he is feeling very well, and experiences no pain in his right hand. Patient states that he does feel that his range of motion and strength in his right hand have improved significantly since prior to injury. Denies any numbness or tingling in the right hand. No other acute complaints or concerns at this time. 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 Neuro: Normal sensation of the tips of all digits of the right hand at this time Vascular: Cap refill brisk Pain: Patient reports no tenderness to palpation of the right 5th metacarpal Patient does report no tenderness to palpation about the pin sites ROM: Patient is able to make a closed fist and extend all other digits of the right hand fully, but is unable to participate and range of motion of the right 5th digit due to pin placement Skin: Incision site on dorsal aspect of right hand over the 5th metacarpal clean, dry, intact, sutures in place No evidence of infection of pin sites or incision General: No erythema, edema, ecchymosis noted Psych: Appears grossly normal Affect normal Attitude cooperative Office Procedures Casting/Splints [id number]/Wrist Cast Application Procedure code (CPT) selection complete Results Reviewed Results Reviewed: X-rays obtained in the office today and independently reviewed by me, Rayo Calhoun PA-C, demonstrate oblique, displaced fracture of the right 5th metacarpal shaft with a proximally translocation of the distal fracture fragment. Minimal evidence of interval bony healing at this time. Assessment & Plan Assessment & Plan (1) Fracture of shaft of fifth metacarpal bone of right hand: Code(s): S62.326A - Displaced fracture of shaft of fifth metacarpal bone, right hand, initial encounter for closed fracture Category: Medical Plan 1. Displaced, oblique fracture of the right 5th metacarpal shaft DOS 06/24/2024 Patient appears to be recovering well postoperatively Patient is educated about the typical recovery course At this time, transverse rotational pain is pulled, however due to the lack of evidence of strong interval bony healing, we will leave the longitudinal pin in for a further 2 weeks after discussion with Dr. Hess patient was amenable to this plan Patient is once again educated on proper cast and pin care and precautions Patient will follow-up in 2 weeks with repeat x-rays for removal of final pin, sooner with any acute concerns Orders: Orders XR hand RT min 3V Today M79.641 - Pain in right hand Coding Level of Care Code Global (60822) Diagnoses Fracture of shaft of fifth metacarpal bone of right hand S62.326A CPT Codes Casting - CPT: 36656-Vvvf/Wrist Cast Application ([id number])
[2024-07-23 09:46] VITALS: BMI 23.3
== END 2024-07-23 10:25 | disposition home or self-care (01) ==
PROVIDERS: PCP Pediatrics
DX: S62.326A Displaced fracture of shaft of fifth metacarpal bone, right hand, initial encounter for closed fracture (principal)
CPT/HCPCS: 29085; 99024

== ENCOUNTER 2024-08-01 12:48 | Outpatient (REF) | payer OTHER, SELFPAY ==
--- NOTE | ~2024-08-01 | XR_ITS ---
EXAMINATION: XR HAND 3 OR MORE VIEWS RIGHT HISTORY: M79.641 - Pain in right hand COMPARISON: Comparison is made with the prior examination. 07/23/2024. FINDINGS: Three views of the right hand are submitted. Osseous mineralization is normal. The patient is again noted to be status post internal fixation of an oblique fracture of the 5th metacarpal with a K wire. Alignment is unchanged. The previously seen additional K wire through the 5th metacarpal neck has been removed. The joint spaces are preserved. The soft tissues are unremarkable. XR/XR hand RT min 3V IMPRESSION: Internal fixation of an oblique fracture of the 5th metacarpal. Electronically signed by: Harrison Navas MD 08/07/2024 09:20 AM NHUNG
== END 2024-08-01 12:49 | disposition home or self-care (01) ==
LOC: HO.HOSX 12:48
DX: M79.641 Pain in right hand (principal)
CPT/HCPCS: 73130

== ENCOUNTER 2024-08-01 12:58 | Outpatient (AMB) | payer OTHER, SELFPAY ==
--- NOTE | 2024-08-01 13:01 | A.OFFVIS_ITS ---
Vital Signs 08/01/24 13:20 Height 5 ft 9 in Weight 158 lb BMI 23.3 Handedness Right Intake Visit Reasons: PO: Rt 5th MC CRPP w/ AR 06/24/24 Intake Note: Cooper is a 18 year old right hand dominant male who presents today for a post operative visit s/p right open 5th metacarpal fracture CRPP and I&D of right open 5th metacarpal fracture DOS: 06/24/24 w/ Dr Hess. At his last visit on 07/23/24 he had one of his pins removed and placed back in a cast. He presents today for an increase in pain in his right 5th MC fracture. He reports he was hiking on 07/29/2024 at [facility] when he slipped and fell on the right hand. He states after this fall is when he had his slight increase in pain. Allergies Penicillins [PENICILLINS] Allergy (Intermediate, Verified 08/01/24 13:19) RASH, VOMITING amoxicillin [From AUGMENTIN] Allergy (Unknown, Verified 08/01/24 13:19) HIVES/VOMIT clavulanic acid [From AUGMENTIN] Allergy (Unknown, Verified 08/01/24 13:19) HIVES/VOMIT clindamycin [CLINDAMYCIN] Allergy (Unknown, Verified 08/01/24 13:19) HIVES/VOMIT penicillamine Adverse Reaction (Mild, Verified 08/01/24 13:19) Muscle Pain Erythromycin Allergy (Unknown, Uncoded 08/01/24 13:19) Abdominal Pain HPI HPI PO: Rt 5th MC CRPP w/ AR 06/24/24: Details: Cooper is a 18 year old right hand dominant male who presents today for a post operative visit s/p right open 5th metacarpal fracture CRPP and I&D of right open 5th metacarpal fracture DOS: 06/24/24 w/ Dr Hess. At his last visit on 07/23/24 he had one of his pins removed and placed back in a cast. He presents today for an increase in pain in his right 5th MC fracture. He reports he was hiking on 07/29/2024 at [facility] when he slipped and fell on the right hand. He states after this fall is when he had his slight increase in pain. 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 Neuro: Normal sensation of the tips of all digits of the right hand at this time Vascular: Cap refill brisk Pain: Patient reports no tenderness to palpation of the right 5th metacarpal Patient does report no tenderness to palpation about the pin sites ROM: Patient is able make closed fist with all digits of the right Patient was unable to fully extend the right small finger, with approximately 10-15 degree extensor lag in the MCP joint and approximately 30-40 degree extensor lag in the PIP joint Patient is able to make a closed fist and extend all other digits of the right hand fully Skin: Pin sites appear dry and intact, no evidence of discharge No evidence of infection of pin sites or incision However, there is noted to be significant amounts of dirt on the index and middle fingers of the right hand, no evidence of alise contamination of the pin site General: No erythema, edema, ecchymosis noted Psych: Appears grossly normal Affect normal Attitude cooperative Results Reviewed Results Reviewed: X-rays obtained in the office today and independently reviewed by , Rayo Calhoun PA-C, demonstrate oblique, displaced fracture of the right 5th metacarpal shaft with approximately 10% translocation of the distal fracture fragment with evidence of interval bony healing. Assessment & Plan Assessment & Plan (1) Fracture of shaft of fifth metacarpal bone of right hand: Code(s): S62.326A - Displaced fracture of shaft of fifth metacarpal bone, right hand, initial encounter for closed fracture Category: Medical Plan 1. Displaced, oblique fracture of the right 5th metacarpal shaft DOS 06/24/2024 Patient appears to be recovering well postoperatively Patient is educated about the typical recovery course Longitudinal pin pulled in the office today Patient educated on pin site care and precautions No evidence of infection upon physical exam today, but given the fact that the patient when hiking and gotten mud on his cast and hand that was exposed, I feel it was appropriate to put him on a one-week course of cephalexin for infection prophylaxis Patient was amenable to this plan Patient is once again educated on proper cast and pin care and precautions Patient will follow-up in 1 week for wound check, sooner with any acute concerns Orders: Orders OT Evaluation and Treatment Today S62.326A - Displaced fracture of shaft of fifth metacarpal bone, right hand, initial encounter for closed fracture XR hand RT min 3V Today M79.641 - Pain in right hand Medications: New cephalexin 500 mg PO QID 28 caps 0RF Coding Level of Care Code Global (79543) Diagnoses Fracture of shaft of fifth metacarpal bone of right hand S62.326A
[2024-08-01 13:20] VITALS: BMI 23.3
== END 2024-08-01 13:39 | disposition home or self-care (01) ==
PROVIDERS: PCP Pediatrics
DX: S62.326A Displaced fracture of shaft of fifth metacarpal bone, right hand, initial encounter for closed fracture (principal)
CPT/HCPCS: 99024

== ENCOUNTER → 2024-08-01 12:59 | Outpatient (BNV) | payer OTHER, SELFPAY | PROVIDERS: Visit Provider Radiology Diagnostic Radiology | DX: S62.326D Displaced fracture of shaft of fifth metacarpal bone, right hand, subsequent encounter for fracture with routine healing (principal) | CPT/HCPCS: 73130 ==

== ENCOUNTER 2024-08-06 09:51 | Outpatient (REF) | payer OTHER, SELFPAY ==
--- NOTE | ~2024-08-06 | XR_ITS ---
EXAMINATION: XR HAND 3 OR MORE VIEWS RIGHT HISTORY: M79.641 - Pain in right hand COMPARISON: Comparison is made with the prior examination dated 08/01/2024. FINDINGS: Three views of the right hand are submitted. Osseous mineralization is normal. The previously seen K wire transfixing the previously noted oblique fracture of the 5th metacarpal has been removed. The fracture line remains visible. There is a small amount of callus formation noted at the fracture site. The joint spaces are preserved. The soft tissues are unremarkable. XR/XR hand RT min 3V IMPRESSION: Oblique fracture of the 5th metacarpal status post removal of the K wire. Small amount of callus formation noted consistent with healing. Electronically signed by: Harrison Navas MD 08/09/2024 08:45 AM EST
== END 2024-08-06 09:52 | disposition home or self-care (01) ==
LOC: HO.HOSX 09:51
DX: Z09 Encounter for follow-up examination after completed treatment for conditions other than malignant neoplasm (principal); M79.641 Pain in right hand; S62.326A Displaced fracture of shaft of fifth metacarpal bone, right hand, initial encounter for closed fracture; Y04.2XXA Assault by strike against or bumped into by another person, initial encounter; Y93.9 Activity, unspecified; Y92.252 Music hall as the place of occurrence of the external cause; Y99.9 Unspecified external cause status
CPT/HCPCS: 73130

== ENCOUNTER 2024-08-06 10:46 | Outpatient (AMB) | payer OTHER, SELFPAY ==
--- NOTE | 2024-08-06 10:47 | A.OFFVIS_ITS ---
Intake Visit Reasons: PO: Rt 5th MC CRPP w/ AR 06/24/24 Intake Note: Cooper is a 18 year old right hand dominant male who presents today for a post operative visit s/p right open 5th metacarpal fracture CRPP and I&D of right open 5th metacarpal fracture DOS: 06/24/24 w/ Dr Hess. At his last visit on 08/01/24 he had his last pin pulled, and was placed in a velcro wrist brace. He was also given a course of Cephalexin because he took a fall while hiking causing mud to enter the cast. Currently, patient reports that he is doing well with no concerns. He has been wearing brace as directed. Allergies Penicillins [PENICILLINS] Allergy (Intermediate, Verified 08/06/24 10:54) RASH, VOMITING amoxicillin [From AUGMENTIN] Allergy (Unknown, Verified 08/06/24 10:54) HIVES/VOMIT clavulanic acid [From AUGMENTIN] Allergy (Unknown, Verified 08/06/24 10:54) HIVES/VOMIT clindamycin [CLINDAMYCIN] Allergy (Unknown, Verified 08/06/24 10:54) HIVES/VOMIT penicillamine Adverse Reaction (Mild, Verified 08/06/24 10:54) Muscle Pain Erythromycin Allergy (Unknown, Uncoded 08/06/24 10:54) Abdominal Pain HPI HPI PO: Rt 5th MC CRPP w/ AR 06/24/24: Details: Cooper is a 18 year old right hand dominant male who presents today for a post operative visit s/p right open 5th metacarpal fracture CRPP and I&D of right open 5th metacarpal fracture DOS: 06/24/24 w/ Dr Hess. At his last visit on 08/01/24 he had his last pin pulled, and was placed in a velcro wrist brace. He was also given a course of Cephalexin because he took a fall while hiking causing mud to enter the cast. Currently, patient reports that he is doing well with no concerns. He has been wearing brace as directed. 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 Neuro: Normal sensation of the tips of all digits of the right hand at this time Vascular: Cap refill brisk Pain: Patient reports no tenderness to palpation of the right 5th metacarpal Patient does report no tenderness to palpation about the pin sites ROM: Patient is able make closed fist with all digits of the right Patient was unable to fully extend the right small finger, with approximately 10-15 degree extensor lag in the MCP joint and approximately 15-20 degree extensor lag in the PIP joint Patient is able to make a closed fist and extend all other digits of the right hand fully Skin: Pin sites appear dry and intact, no evidence of discharge No evidence of infection of pin sites or incision General: No erythema, edema, ecchymosis noted Psych: Appears grossly normal Affect normal Attitude cooperative Results Reviewed Results Reviewed: X-rays obtained in the office today and independently reviewed by , Rayo Calhoun PA-C, demonstrate oblique, displaced fracture of the right 5th metacarpal shaft with approximately 10% translocation of the distal fracture fragment with evidence of interval bony healing. Assessment & Plan Assessment & Plan (1) Fracture of shaft of fifth metacarpal bone of right hand: Code(s): S62.326A - Displaced fracture of shaft of fifth metacarpal bone, right hand, initial encounter for closed fracture Category: Medical Plan 1. Displaced, oblique fracture of the right 5th metacarpal shaft DOS 06/24/2024 Patient appears to be recovering well postoperatively Patient is educated about the typical recovery course No further evidence of infection, patient no longer requires antibiotic therapy Patient was advised that he should only wear the Velcro wrist splint high-risk situations, such as icy conditions or at a concert Patient is also educated that he only needs to wear marquis tape with daytime activities Patient was amenable to this plan Patient is once again educated on pin site care and precautions Patient will follow-up in 4 week for wound check, sooner with any acute concerns Orders: Orders XR hand RT min 3V Today M79.641 - Pain in right hand Coding Level of Care Code Global (08965) Diagnoses Fracture of shaft of fifth metacarpal bone of right hand S62.326A
== END 2024-08-06 11:18 | disposition home or self-care (01) ==
PROVIDERS: PCP Pediatrics
DX: S62.326A Displaced fracture of shaft of fifth metacarpal bone, right hand, initial encounter for closed fracture (principal)
CPT/HCPCS: 99024

== ENCOUNTER 2024-08-22 13:52 | Outpatient (RCR) | payer OTHER, SELFPAY ==
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
== END 2024-09-03 13:42 | disposition home or self-care (01) ==
LOC: HO.OT 13:52
DX: S62.326D Displaced fracture of shaft of fifth metacarpal bone, right hand, subsequent encounter for fracture with routine healing (principal)
CPT/HCPCS: 97110; 97140; 97165; 97535

== ENCOUNTER 2024-09-03 15:25 | Outpatient (AMB) | payer OTHER, SELFPAY ==
--- OUTSIDE RECORDS SUMMARY | 2024-09-03 15:28 | XMS_ITS | Encounter Summary ---
Author Organization [facility] Address [address] [place] [address] Phone Care Team Providers Care Certified Ophthalmic Technician Name Role Phone Linda Godwin MD Primary Care Provider [phone] Reason for Visit * Reason Comments Med Change Request Encounter Details Date Type Department Care Team ([facility] st Contact Info) Description 09/04/2022 Refill [facility] [address] [place] [address] Linda Godwin MD [address] [place] [address] Anxiety and depression Social History Tobacco Use Types Packs/Day Years Used Date Smoking Tobacco: Never Smokeless Tobacco: Never Comments:Never smoker Hunger/Food Answer Date Recorded In the last 12 months, did y ou or your family ever eat less than you felt you should because there wasn't enough money for food? No 08/10/2022 Stable Housing Answer Date Recorded Are you worried that in the next 2 months you may not have stable housing? No 08/10/2022 Transportation Concerns Answer Date Rec orded In the last 12 months, have you or your family ever had to go without healthcare because you didn't have a way to get there? No 08/10/2022 Hazards in Home Answer Date Recorded Think about the place you li ve. Do you have problems with any of the following? Pests (mice or roaches), mold, no/not working smoke detectors, water leaks, no window guards. No 2022 Financing Utilities Answer Date Recorde d In the last 12 months, has t he electric, gas, oil, or water company threatened to shut off your services in your home? No 08/10/2022 Safety at Home Answer Date Recorded Are you or your family worried about feeling saf e in your home? No 08/10/2022 Outside Support Answer Date Recorded Do you feel that you need mo re support from other people or programs to help you care for yourself or your family? No 08/10/2022 Understanding Health Concerns Answer Da te Recorded Do you need help understandi ng your or your child's healthcare needs (diagnosis, medications, plan, etc.)? No 08/10/2022 Financing Health Concerns Answer Date R ecorded In the last 12 months, was t here a time when your child needed to see a doctor or get medications or supplies but could not because of cost? No 08/10/2022 Missing School or Work Answer Date Anderson rded Did you or your child miss s chool or work because of a health problem that could have been avoided? No 08/10/2022 Sex and Gender Information Value Date Recorded Sex Assigned at Not on file Legal Sex Male 5:16 PM EDT Gender Identity Male 10/11/2020 10:14 PM EDT Sexual Orientation Straight 03/15/2021 4: 07 PM EDT documented as of this encounter Miscellaneous Notes * Telephone Encounter - Aamir Barbosa LPN - 09/05/2022 2:48 PM EST 90 day supply requested for fluoxetine 10 mg. documented in this encounter Plan of Treatment Not on file documented as of this encounter Visit Diagnoses Diagnosis Anxiety and depression documented in this encounter Care Teams Certified Ophthalmic Technician Relationship Specialty Start Date End Date Linda Godwin MD [address] [place] [id number] PCP - General Pediatrics 03/05/20 08/11/24 documented as of this encounter
--- OUTSIDE RECORDS SUMMARY | 2024-09-03 15:28 | XMS_ITS | Encounter Summary ---
Author Organization [facility] Address [address] [place] [address] Phone Care Team Providers Care Elementary Supervisor Name Role Phone Linda Godwin MD Primary Care Provider [phone] Encounter Details Date Type Department Care Team (Late st Contact Info) Description 03/03/2016 Documentation [facility] Family Medicine [address] [place] [address] Family Medicine, Physician [address] [place] [address] Social History Tobacco Use Types Packs/Day Years Used Date Smoking Tobacco: Never Assessed Sex and Gender Information Value Date Recorded Sex Assigned at Not on file Legal Sex Male 5:16 PM EDT Gender Identity Male 10/11/2020 10:14 PM EDT Sexual Orientation Straight 03/15/2021 4: 07 PM EDT documented as of this encounter Plan of Treatment Not on file documented as of this encounter Visit Diagnoses Not on filedocumented in this encounter Care Teams Elementary Supervisor Relationship Specialty Start Date End Date Linda Godwin MD [address] [place] [id number] PCP - General Pediatrics 03/05/20 08/11/24 documented as of this encounter
--- OUTSIDE RECORDS SUMMARY | 2024-09-03 15:28 | XMS_ITS | Encounter Summary ---
Author Organization [facility] Address [address] [place] [address] Phone Care Team Providers Care Senior Underwriter Name Role Phone Linda Godwin MD Primary Care Provider [phone] Reason for Visit * Reason Comments Med Change Request Encounter Details Date Type Department Care Team ([facility] Contact Info) Description 01/17/2022 Refill [facility] [address] [place] [address] Linda Godwin MD [address] [place] [address] Anxiety and depression; Obsessive-compulsive disorder, unspecified type Social History Tobacco Use Types Packs/Day Years Used Date Smoking Tobacco: Never Smokeless Tobacco: Never Comments:Never smoker Hunger/Food Answer Date Recorded In the last 12 months, did y ou or your family ever eat less than you felt you should because there wasn't enough money for food? No 03/09/2020 Stable Housing Answer Date Recorded Are you worried that in the next 2 months you may not have stable housing? No 03/09/2020 Transportation Concerns Answer Date Rec orded In the last 12 months, have you or your family ever had to go without healthcare because you didn't have a way to get there? No 03/09/2020 Hazards in Home Answer Date Recorded Think about the place you li ve. Do you have problems with any of the following? Pests (mice or roaches), mold, no/not working smoke detectors, water leaks, no window guards. No 2019 Financing Utilities Answer Date Recorde d In the last 12 months, has t he electric, gas, oil, or water company threatened to shut off your services in your home? No 03/09/2020 Safety at Home Answer Date Recorded Are you or your family worried about feeling saf e in your home? No 03/09/2020 Outside Support Answer Date Recorded Do you feel that you need mo re support from other people or programs to help you care for yourself or your family? No 03/09/2020 Understanding Health Concerns Answer Da te Recorded Do you need help understandi ng your or your child's healthcare needs (diagnosis, medications, plan, etc.)? No 03/09/2020 Financing Health Concerns Answer Date R ecorded In the last 12 months, was t here a time when your child needed to see a doctor or get medications or supplies but could not because of cost? No 03/09/2020 Missing School or Work Answer Date Anderson rded Did you or your child miss s chool or work because of a health problem that could have been avoided? No 03/09/2020 Sex and Gender Information Value Date Recorded Sex Assigned at Not on file Legal Sex Male 5:16 PM EDT Gender Identity Male 10/11/2020 10:14 PM EDT Sexual Orientation Straight 03/15/2021 4: 07 PM EDT documented as of this encounter Miscellaneous Notes * Telephone Encounter - Bhavna Stacy LPN - 01/17/2022 11:08 AM EDT Pharm request changes to Fluoxetine script. Pharmacy is requesting 90 day supply with 2 refills. Last pe 03/20 Last roopa 01/19 documented in this encounter Plan of Treatment Not on file documented as of this encounter Visit Diagnoses Diagnosis Anxiety and depression Obsessive-compulsive disorder, unspecified type documented in this encounter Care Teams Senior Underwriter Relationship Specialty Start Date End Date Linda Godwin MD [address] [place] [id number] PCP - General Pediatrics 03/05/20 08/11/24 documented as of this encounter
--- OUTSIDE RECORDS SUMMARY | 2024-09-03 15:28 | XMS_ITS | Encounter Summary ---
Author Organization [facility] Address [address] [place] [address] Phone Care Team Providers Care Captain Fishing Vessel Name Role Phone Linda Godwin MD Primary Care Provider [phone] Reason for Visit * Reason Comments Med Refill Encounter Details Date Type Department Care Team ([facility] st Contact Info) Description 04/26/2022 Refill [facility] [place] [address] [place] [address] Linda Godwin MD [address] [place] [address] Anxiety and depression; Obsessive-compulsive disorder, unspecified type [...] encounter Miscellaneous Notes * Telephone Encounter - Linda Godwin MD - 04/26/2022 3:49 PM EDT 04/26/2022 (age 16yr): Franck is due for a follow up with me. This should be separate from the scheduled well visit. I have sent in a 1 month refill. Please have Franck schedule the follow up. * Telephone Encounter - Aamir Barbosa LPN - 04/26/2022 3:29 PM EDT [facility] is requesting a refill on fluoxetine 20 mg. Last PE was 03/15/21. Pt has a PE scheduled for 05/31/22 documented in this encounter Plan of Treatment Not on file documented as of this encounter Visit Diagnoses Diagnosis Anxiety and depression Obsessive-compulsive disorder, unspecified type documented in this encounter Care Teams Captain Fishing Vessel Relationship Specialty Start Date End Date Linda Godwin MD [address] [place] [address] PCP - General Pediatrics 03/05/20 08/11/24 documented as of this encounter
--- OUTSIDE RECORDS SUMMARY | 2024-09-03 15:28 | XMS_ITS | Encounter Summary ---
Author Organization [facility] Address [address] [place] [address] Phone Care Team Providers Care Appliquer Zigzag Name Role Phone Linda Godwin MD Primary Care Provider [phone] Encounter Details Date Type Department Care Team (Late st Contact Info) Description 10/01/2012 Documentation EM Family Medicine [address] [place] [address] Family Medicine, Physician [address], [place] [address] Social History Tobacco Use Types Packs/Day Years [...] on filedocumented in this encounter Care Teams Appliquer Zigzag Relationship Specialty Start Date End Date Linda Godwin MD [address] [place] [id number] PCP - General Pediatrics 03/05/20 08/11/24 documented as of this encounter
--- OUTSIDE RECORDS SUMMARY | 2024-09-03 15:28 | XMS_ITS | Encounter Summary ---
Author Organization [facility] Address [address] [place] [address] Phone Care Team Providers Care Yarn Bleaching Machine Operator Name Role Phone Linda Godwin MD Primary Care Provider [phone] Reason for Visit * Reason Comments Med Refill Encounter Details Date Type Department Care Team ([facility] st Contact Info) Description 06/04/2022 Refill [facility] [place] [address] [place] [address] Linda Godwin MD [address] [place] [address] Anxiety and depression; Obsessive-compulsive disorder, unspecified type [...] encounter Miscellaneous Notes * Telephone Encounter - Reagan Mi - 06/08/2022 9:33 AM EST N/a to reach patient this am, multiple messages left over last few days to call and schedule. He is currently scheduled 08/10/2022 for his [facility]. Thank you, Reagan * Telephone Encounter - Linda Godwin MD - 06/08/2022 8:38 AM EST 06/08/2022 (age 16yr): It is unclear whether Franck has been called. * Telephone Encounter - Linda Godwin MD - 06/07/2022 5:59 AM EST Franck needs a follow up appointment before prescription can be sent. Please call Franck to schedule thisand let me know when the appointment is made so I can fill the Rx. He is also due for a well visit.Please schedule this separately. * Telephone Encounter - Amy Faye LPN - 06/06/2022 3:42 PM EST Pharm requesting refill fluoxetine 20mg. EH documented in this encounter Plan of Treatment Not on file documented as of this encounter Visit Diagnoses Diagnosis Anxiety and depression Obsessive-compulsive disorder, unspecified type documented in this encounter Care Teams Yarn Bleaching Machine Operator Relationship Specialty Start Date End Date Linda Godwin MD [address] [place] [id number] PCP - General Pediatrics 03/05/20 08/11/24 documented as of this encounter
--- OUTSIDE RECORDS SUMMARY | 2024-09-03 15:29 | XMS_ITS | Encounter Summary ---
Author Organization [facility] Address [address] [place] [address] Phone Care Team Providers Care Carrot Tier Name Role Phone Linda Godwin MD Primary Care Provider [phone] Encounter Details Date Type Department Care Team (Late st Contact Info) Description 07/26/2016 Documentation [facility] [place] [address] [place] [address] Family Medicine, Physician [address], [place] [address] Social History Tobacco Use Types Packs/Day Years [...] on filedocumented in this encounter Care Teams Carrot Tier Relationship Specialty Start Date End Date Linda Godwin MD [address] [place] [id number] PCP - General Pediatrics 03/05/20 08/11/24 documented as of this encounter
--- OUTSIDE RECORDS SUMMARY | 2024-09-03 15:29 | XMS_ITS | Clinical Summary ---
Author Organization [facility] Address [address] [place] [id number] Phone Care Team Providers Care Repair Cameraman Name Role Phone Unavailable Primary Care Provider Unavailabl e Allergies Active Allergy Reactions Criticality Noted Date Comments Amoxicillin Rash Low Amoxicillin-Pot Clavulanate Rash Low 08/09/19 22 Clindamycin Penicillins Medications triamcinolone 0.1 % creamIndications :Contact dermatitis, unspecified contact dermatitis type, unspecified trigger Apply topically 2 (two) times a day as needed for rash. Do not use for more than 7-10 consecutive days 80 g 4 Active Additional Information Patient not taking.Reported on 05/21/2024 FLUoxetine 40 MG capsuleIndicatio ns:Anxiety and depression Take 1 capsule (40 mg total) by mouth daily. 90 capsule 4 09/15/19 25 Active Active Problems Problem Noted Date Diagnosed Date Bulimia 07/10/2024 Overview (07/10/2024): - Last Specialist Visit: 07/10/2024 (age 18yr): Hospitalized at [facility] 06/30/2024-07/10/2024for SI, depression, Bulemia. Discharged on Fluoxetine 60 mg. Will go home with a 30 day supply. Has RV counseling appt 07/15 for intake and two other appts in July and August for psych. Also was referred to do partial hospitalization appt for intake is on August 08. Viral illness 06/21/2023 Assessment & Plan (06/21/2023 10:14 AM EST): Strep swab pending - home COVID testing has been negative Supportive care reviewed OCD (obsessive compulsive disorder) 05/19/2020 Overview (08/10/2022): 08/10/2022 (age 17yr): doing very well on fluoxetine 40 mg with almost no symptoms. Dosage of fluoxetine increased from 30 mg to 40 mg 07/30/2020. Will decrease back to 30 mg today. See problem of anxiety/depression. Historically, Pt c/o Sexual Orientation OCD. Has had obsessive thoughts of worrying if he might be malhotra or be attracted to men. He is in a healthy relationship with a women and feels that he would be supported by his family if he were malhotra. He also has anxiety and depression, however SO OCD has been his most troublesome symptoms. Started fluoxetine 05/19/2020 with good effect starting after 2 weeks. Dosage increased 06/11/2020 to fluoxetine 30 mg, 07/30/2020 to fluoxetine 40 mg for intrusive SO OCD symptoms. . Has therapist (Zoila Cross [phone]). Partial hospital program early May 2020 . See problem anxiety and depression for full details of history. Assessment & Plan (08/10/2022 11:41 AM EST): 08/10/2022 (age 17yr): doing very well on fluoxetine 40 mg with almost no symptoms. Dosage of fluoxetine increased from 30 mg to 40 mg 07/30/2020. Will decrease back to 30 mg today. See problem of anxiety/depression. Assessment & Plan (01/01/2021 3:37 PM EDT): 01/01/2021 (age 15yr 5mo): OCD and intrustive thoughts still very well controlled with fluoxetine 40 mg. See Anxiety/depression for full details. Assessment & Plan (10/12/2020 5:49 PM EDT): 10/12/2020 (age 15yr 2mo): OCD and intrustive thoughts still very well controlled with fluoxetine 40 mg. See Anxiety/depression for full details. Assessment & Plan (08/24/2020 7:49 PM EST): 08/24/2020 (age 15 yr 1 mo): doing very well on fluoxetine 40 mg with almost no OCD symptoms. Dosage of fluoxetine increased from 30 mg to 40 mg . Assessment & Plan (07/30/2020 12:48 PM EST): 07/30/2020 (age 15 yr 0 mo): phone call to discuss increasing OCD symptoms. Dosage was increased from 20 to 30 mg on . Per recent partial hospitalization 05/2020, we may need dose pushed to 40 mg to treat OCD. Mom reports that Cooper's therapist called mom after Cooper's appointment last week requesting a med dosage increase based on recent increases in intrusive SO OCD thoughts. Cooper is otherwise stable and has open communication with his mother. Also, Cooper's therapist thinks that a more specialized program for OCD might be helpful. Cooper has no motivation to engage in school. Mom send me a portal message with all of the programs that Cooper's therapist recommended. She had requested that I discuss the referral with the therapist, but she wasn't actually sure that was needed. Mom is hoping to get [facility] to cover treatment at [facility]. I offered to help with referral or insurance coverage if needed. Mom will check back with Cooper's therapist and let me know. Fluoxetine dose increased from 30 mg to 40 mg. Follow up planned for 08/24/2019. Assessment & Plan (07/03/2020 5:06 PM EST): 07/03/2020 (age 14 yr 11 mo): significant improvement on fluoxetine 30 mg, especially with OCD symptoms. Dosage was increased from 20 to 30 mg on (about 2 weeks ago). Per recent partial hospitalization, may need dose pushed to 40 mg to treat OCD. Follow up 6 weeks. Assessment & Plan (05/19/2020 5:43 PM EDT): 05/19/2020 (age 14 yr 9 mo): Pt c/o Sexual Orientation OCD. Has obsessive thoughts of worrying if he might be malhotra or be attracted to men. He is in a healthy relationship with a women and feels that he would be supported by his family if he were malhotra. He also has anxiety and depression, however SO OCD is currently his most troublesome symptoms. He is seeing therapist for this, and would like to start SSRI. (see problem anxiety and depression) Grief 03/07/2020 Overview (05/17/2020): 03/07/2020 Chart Review: 11/14/2019: DARCY unexpectedly in May 2018 or acute OR. SX began shortly after that. Visit for feeling spacey and has difficulty focusing. Between 11/2018 and 02/2019, Cooper was seen for symptoms of fatigue, chest pain, weight loss and dizziness. + History of anxiety. He restarted counseling 02/2019. Anxiety and depression 03/07/2020 Overview (07/10/2024): 11/10/2023 (age 18yr): Diagnosis is OCD with intrusive thoughts, anxiety/depression. Has been on fluoxetien 40 gm daily with worsening symptoms of depression and anxiety. Was in crisis for suicide attempt (benadryl OD) 08/09/2023. Stressors included break up with girlfriend. Overall has been feeling better but still very high PHQ9 and GAD7. 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 - Agrees to schedule with [facility] for intake - Continue back to 40 mg,declines dose increase. - Follow up with me in 6 weeks - encourage finding adult psychiatrist and adult PCP (list given) - Last Specialist Visit: 07/10/2024 (age 18yr): Hospitalized at [facility] 06/30/2024-07/10/2024for SI, depression, Bulemia. Discharged on Fluoxetine 60 mg. Will go home with a 30 day supply. Has [facility] counseling appt 07/15 for intake and two other appts in July and August for psych. Also was referred to do partial hospitalization appt for intake is on August 08. Detailed History and Chronology of care: 03/07/2020 Chart Review: Has been in counseling on and off. History of increased anxiety and somatic symptoms after the of grandmother 05/2018. Was in therapy following this event starting 02/2019 (Lexie Pacheco). 03/09/2020 (age 14 yr 7 mo): no longer in counseling. Still feels a little disassociated . Feeling better now that he's seeing his friends a little more during the covid 19 pandemic. They would like to look for a different therapist. 05/19/2020: PHQ9 20, DAHIANA 7 17, Started Fluoxetine 20 mg 06/02/2020 (age 14 yr 10 mo): In 10-12 days of partial hospital program, doing well on fluoxetine. Partial will do OCD screen. If positive, they may increase dosage of fluoxetine. . Sometimes they treat at dosages above normal range. Can use bridge program if needed. 07/30/2020 (age 15 yr 0 mo): Dosage of fluoxetine increased from 30 mg to 40 today for increasing SO OCD symptoms 10/12/2020 (age 15yr 2mo): doing very well on fluoxetine 40 mgwith decreased symptoms.. 01/29/2021 (age 15yr 6mo): continues to do very well. 08/10/2022 (age 17yr): Doing well on fluoxetine 40, taper to 30 now. 06/16/2023 (age 17yr): : OCD worse, back for up fluoxetine 40 08/09/2023 (age 18yr): SI with OD benadryl after GF broke up with him. Was Evaluated in the ED, stabilized, and referred to [facility]. Message to [facility] to request follow up with me and to make sure [facility] connection is made. Assessment & Plan (11/10/2023 5:56 PM EDT): 11/10/2023 (age 18yr): Diagnosis is OCD with intrusive thoughts, anxiety/depression. Has been on fluoxetien 40 gm daily with worsening symptoms of depression and anxiety. Was in crisis for suicide attempt (benadryl OD) 08/09/2023. Stressors included break up with girlfriend. Overall has been feeling better but still very high PHQ9 and GAD7. 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 - Agrees to schedule with [facility] for intake - Continue back to 40 mg,declines dose increase. - Follow up with me in 6 weeks - encourage finding adult psychiatrist and adult PCP (list given) Assessment & Plan (09/13/2023 12:34 PM EST): 09/13/2023 (age 18yr): Diagnosis is OCD with intrusive thoughts, anxiety/depression. Has been on fluoxetien 40 gm daily with worsening symptoms of depression and anxiety. Was in crisis for suicide attempt (benadryl OD) 08/09/2023. Stressors include break up with girlfriend. Denies current SI but feels ambivalent about suicide attempt and about continuing to live. - Agrees with some reluctance to brief intervention/safety check with [facility] today - Agrees to schedule with [facility] for intake - Agrees to schedule follow up with [facility] soonest available (but not next week) - Will accept follow up phone calls from [facility] or from [facility] - Follow up with [facility] psychiatrist next month for med adjustment or change - Continue back to 40 mg,declines dose increase. - will consider seeing a therapist, wants to try psychology today Assessment & Plan (06/16/2023 12:07 PM EST): 06/16/2023 (age 17yr): : Diagnosis is OCD with intrusive thoughts, anxiety/depression. Decreased dose from 40 to 30 mg 05/2023, No having increased OCD symptom of tapping things (usually 8 times) would like to increase fluox back up to 40. No identified new stressors. - Increase fluoxetine back to 40 mg - will consider seeing a therapist, wants to try psychology today - offered [facility] and follow up call from [facility]. Both declined for now. - Hx intrusive thoughts that were very uncomfortable (see problem OCD) - follow up 2 months. Assessment & Plan (03/14/2023 12:17 PM EDT): 03/14/2023 (age 17yr): : Diagnosis is OCD with intrusive thoughts, anxiety/depression. Doing well, stable since fluoxetine now for many years (since at least 2019). Decreased dose from 40 to 30 mg 05/2023, is table. 0. Last Rx was #30 no RF 03/2022 but Franck reports he still has meds and is taking daily. He thinks there must have been a time in the past when he did not take daily so had a large supply at home. Is working, no currently planning on school (graduated HS), living with parents and GF who lives with his family as well. Is have some financial stress (trying to save) and father has skin cancer. - Taper fluoxetine very slowly. Currently on 30 mg and will consider decrease to 20 mg. - Hx intrusive thoughts that were very uncomfortable (see problem OCD) - follow up 3 months. Assessment & Plan (08/10/2022 11:40 AM EST): 08/10/2022 (age 17yr): Diagnosis is OCD with intrusive thoughts, anxiety/depression. Doing well, stable since fluoxetine increased to 40 mg 06/2020. Last Rx was #30 no RF 03/2022 but Franck reports he still has meds and is taking daily. He thinks there must have been a time in the past when he did not take daily so had a large supply at home. Currenltly doing exceeding well. 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 GAD7 and PHQ9 both 4. - Taper fluoxetine very slowly. Will decrease from 40 mg to 30 mg today - Cooper's mom will help with finding a therapyist - Hx intrusive thoughts that were very uncomfortable (see problem OCD) - follow up 3 months. Assessment & Plan (01/04/2022 10:25 AM EDT): 01/04/2022 (age 16yr): Diagnosis is OCD with intrusive thoughts, anxiety/depression. Doing well, stable since fluoxetine increased to 40 mg 06/2020. GAD7 is somewhat increased (6) though PQ9 is lower (3). 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 Would like to re engage in therapy and consider a very slow taper of fluoxetine once therapy is established. - Continue fluoxetine 40 mg - Cooper's mom will help with finding a therapyist - Cooper will let me know when he is ready to taper. Would call in 20mg and 10 mg caps, stay on 30 x 6-8 weeks as hx intrusive thoughts that were very uncomfortable (see problem OCD) - follow up 2 months. Assessment & Plan (11/05/2021 5:20 PM EDT): 11/05/2021 (age 16yr): Doing well, stable since fluoxetine increased to 40 mg 06/2020. GAD7 is low, though PQ9 is somewhat elevated. Not sleeping as well or skating as much. No longer in therapy. Diagnosis is OCD with intrusive thoughts, anxiety/depression. In the past he has had somatic symptoms and feelings of disassociation. Fluoxetine was initially started 05/19/2020. s/p [facility] hospital program early May 2020. Offered IH if needed as Cooper' transitions to college. Assessment & Plan (08/09/2021 5:27 PM EST): 08/09/2021 (age 16yr): : . . Doing very well, stable since fluoxetine increased to 40 mg 06/2020. PHQ9 and GAD7 very low. No longer in therapy. Diagnosis is OCD with intrusive thoughts, anxiety/depression. - follow up 10/2021, consider slow taper of fluoxetine. Cooper plans [employer] vs [employer] for next year. Assessment & Plan (03/15/2021 5:40 PM EDT): 03/15/2021 (age 15yr 7mo): continues to do well on fluoxetine 40 mg, follow up . Assessment & Plan (01/29/2021 4:51 PM EDT): 01/29/2021 (age 15yr 6mo): PHQ9 is much lower than baseline. It has gone from 15 to 5. DAHIANA back up to baseline, it has gone from 2 to 7. He reports he's doing really good. He participated in a [employer] competition recently and really enjoyed it. He is seeing friend a lot more. He reports his anxiety is feeling low as well. He will restarting with his therapist next week after a 2 month break due to scheduling issues. He is taking his fluoxetine 40 mg daily. He reports rare missed doses. If he forgets a does he does notice more anxiety after he realizes he forgot the pill. - continue fluoxetine 40 mg - continue with therapist - follow up 3 months - continue to discuss tapering meds. Assessment & Plan (01/01/2021 3:30 PM EDT): 01/01/2021 (age 15yr 5mo): Today, Cooper reports he doing really well. 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 He has not been able to schedule with his therapist due to his busy school schedule. He has been skating more often, hanging out with friends. Still on fluoxetine 40 mg. GAD7 is impved from 8 to 2, but PHQ9 is elevated from 12 to 15. Intrusive thoughts are not a bother. Cooper reports a feeling of boredom, not sure how to spend hist time. He does not have anhedonia - he is motivated to find enjoyable activities. No SI. Cooper would prefer not to taper meds during the summer because he tends to feel unmoored. ?? - continue fluoxetine 40 mg, prefers not to taper meds during the summer - Follow up 2-4 weeks (pt request), 15 minute appointment OK. - try to schedule a visit with his therapist. Assessment & Plan (10/12/2020 6:02 PM EDT): 10/12/2020 (age 15yr 2mo): GAD7 is up from 3 to 8 but he reports that he continues to feel good, fluoxetine is still working well at 40 mg. He has no side effects. He is still seeing his therapist. Intrusive thoughts have been quiet. Cooper's therapist wants to check in make sure that she's still the right fit. Mom reports that Cooper doesn't seem to be very engaged with the therapist and it is unclear whether they are not connecting well, or if it is the time of day. Mom will report back on how that meeting goes. Cooper requests close follow up with me (4 weeks) Assessment & Plan (08/24/2020 7:51 PM EST): 08/24/2020 (age 15 yr 1 mo): Dosage of fluoxetine increased from 30 mg to 40 07/30/2020. Symptoms of anxiety and depression seem to be improved. GAD7 is down to 3 from 13, PHQ( is down to 13 from 20. He reports he's feeling better on fluoxetine 40 mg. He is doesn't feel bothered by the OCD or anxiety symptoms at all. He still has some mild depressive symptoms but they are manageable. Cooper repots he is doing well in school, having much less trouble completing assignments. He recently had a break up, but is coping well and is in a new relationship. Follow up 1 month, Cooper's request. Assessment & Plan (07/30/2020 12:45 PM EST): 07/30/2020 (age 15 yr 0 mo): phone call to discuss increasing OCD symptoms. Dosage was increased from 20 to 30 mg on . Per recent partial hospitalization 05/2020, we may need dose pushed to 40 mg to treat OCD. Mom reports that Cooper's therapist called mom after Cooper's appointment last week requesting a med dosage increase based on recent increases in intrusive SO OCD thoughts. Cooper is otherwise stable and has open communication with his mother. Also, Cooper's therapist thinks that a more specialized program for OCD might be helpful. Cooper has no motivation to engage in school. Mom send me a portal message with all of the programs that Cooper's therapist recommended. She had requested that I discuss the referral with the therapist, but she wasn't actually sure that was needed. Mom is hoping to get [facility] to cover treatment at [facility]. I offered to help with referral or insurance coverage if needed. Mom will check back with Cooper's therapist and let me know. Follow up planned for 08/24/2019. Assessment & Plan (07/03/2020 5:06 PM EST): 07/03/2020 (age 14 yr 11 mo): significant improvement on fluoxetine 30 mg, especially with OCD symptoms. Dosage was increased from 20 to 30 mg on (about 2 weeks ago). Per recent partial hospitalization, may need dose pushed to 40 mg to treat OCD. Follow up 6 weeks. Assessment & Plan (06/02/2020 4:51 PM EST): 06/02/2020 (age 14 yr 10 mo):Started fluoxetine 2 weeks ago, has been on 20 mg dosage x 1 week. Meds seems to be helping. His intrusive OCD thoughts are less intrusive. [facility] last [facility]. He will likely be in for 10 - 12 days. He is not noticing any side effects, no SI. Seeing therapist weekly, even in partial hosp. Assessment & Plan (05/19/2020 5:42 PM EDT): 05/19/2020 (age 14 yr 9 mo): PHQ9 20, DAHIANA 7 17 - indication severe anxiety and depression. Cooper has been seeing a therapist x 2 months (Zoila Tay [phone]). Diagnosis from her has been OCD with some anxiety and depression. She is working on getting him partial hospital program. Zoila has been on board with the idea of treating with SSRI. Per mom , struggles are getting worse despite better coping skills. Has had partial hosptialzation and psych inpatient at age 6 or 7. He has been on SSRI. He did not do well with zoloft - weight gain, symptoms were worse. He had also tried prozac, citalopram in the past. In addition to OCD, he suffers with feelings of depression (low engery, feeling of dissociation with other, low motivation) constantly, and anxiety (performance anxiety) intermittently.He contracts for safety, no suicidal ideation. Cooper and is mother would like to start an SSRI to help mitigate these symptoms. Will start fluoxetine 10 mg caps, 1 daily x 7 days, then increase to 20 if tolerating well. Follow up in 2 week. Medically complex patient 03/04/2019 Resolved Problems Problem Noted Date Diagnosed Date Resolved Date Weight loss 03/07/2020 01/01/2021 Overview (01/01/2021): 01/01/2021 (age 15yr 5mo): Problem resolved. Weight loss 27 lbs from 01/2018 to 04/2019. Weight is following at 50%ile or greater since 04/2019. History. - All symptoms seem related to grief reaction. - With fatigue, chest pain, and dizziness, insomnia, and poor appetite. Weight loss began winter 2009 after the of his grandmother . Work up so far: celiac, CBC, comp metab panel, thyroid. - 03/08/2019: Started counseling for grief. - 03/21/2019: Saw Cardiol at [facility] ([place]): EKG, Holter negative. ? Some aspect of Orthostatic hypotension. No follow up requested. - 08/05/2019: Weight is up 6 pounds over 5 months. Assessment & Plan (01/01/2021 3:35 PM EDT): 01/01/2021 (age 15yr 5mo): Problem resolved. Weight loss 27 lbs from 01/2018 to 04/2019. Weight is following at 50%ile or greater since 04/2019. Assessment & Plan (03/09/2020 11:40 AM EDT): 03/09/2020 (age 14 yr 7 mo): Weight is following at 50%ile since 04/2019. 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 Referred to [facility].\ (Pt was seen at [facility] and no scoliosis was found, no follow up requested) Mild intermittent asthma without complication 07/17/20 09 03/15/2021 Overview (03/15/2021): 03/15/2021 (age 15yr 7mo): Problem resolved. Cooper has asthma as a young child. Has not needed albuterol in more than 5 years, maybe closer to 10 years. Assessment & Plan (03/15/2021 3:58 PM EDT): 03/15/2021 (age 15yr 7mo): Problem resolved. Cooper has asthma as a young child. Has not needed albuterol in more than 5 years, maybe closer to 10 years. Encounters Date Type Department Care Team Description 08/12/2024 Telephone [facility] [address] [place] [address] Linda Godwin MD 21 letter 07/09/2024 Telephone [facility] [address] [place] [address] Venecia Douglas MA appt 07/02/2024 Telephone [facility] [address] [place] [address] PamShilpi matthews LPN Hospital Admit 06/30/2024 10:15 PM EST - 07/10/2024 12:54 PM EST Hospital Encounter [facility] - Patient Ping 06/18/2024 Telephone [facility] [address] [place] [address] Aamir Barbosa LPN ER Visit 06/17/2024 Refill [facility] [address] [place] [address] Linda Godwin MD Anxiety and depression 06/16/2024 10:24 PM EST - 06/17/2024 12:33 AM EST Hospital Encounter [facility] - Patient Ping from Last 3 Months Immunizations Name Administration Dates Next Due DTaP 5 08/10/2007, 5,01/26/2004,11/27,2003 H1N1 07/17/2009 HPV Vaccine 9 Valent 08/08/2016,01/26/2016 Hep A, ped/adol 01/26/2016,01/22/2015 Hep B, ped/adol 04/26/2004,01/26/2004,2003 Hib (HbOC) 10/26/2004, 4,2003,09/26 IPV 08/10/2007, 4,2003,09/26 Influenza Split 05/25/2012,04/07/2011 Influenza, injectable, quadr ivalent, preservative free 05/27/2020,05/19/2019,04/13/2018,06/13,05/10/2014,07/01/2013 Influenza, injectable, trivalent 009,09/16/2008,06/08/2006,05/26,09/17/2004,08/02/2004 MMR 08/02/2004 MMRV 08/10/2007 Meningococcal B Trumenba 08/10/2022 Meningococcal Conj (Menactra) MCV4P 03/09/2020,0 01/22/2015 Pneumococcal Conjugate 10/26/2004,2003,2003,09/26 Tdap 11/21/2021,01/22/2015 Varicella 08/02/2004 Family History Medical History Relation Name Comments Anxiety disorder Father Trever Gallegos Anxiety disorder Mother Regina Ramirez Depression Mother Regina Ramirez Relation Name Status Comments Cousin Cousin: ADD/ADH D Father Trever Gallegos Alive Father: PTSD, a nxiety Maternal Grandfather Materna l grandfather: Hyperlipidemia Maternal Grandmother Materna l grandmother: Depression, Hyperlipidemia Mother Regina Ramirez Alive Mother: Anxiety , depression, Obesity Other Family history of Cancer, breast, Family history of Asthma, Family history of Migraines, Family history of Cancer, cervical, Family history of Cancer, colon Social History Tobacco Use Types Packs/Day Years Used Date Smoking Tobacco: Never Smokeless Tobacco: Never Comments:Never smoker Hunger/Food Answer Date Recorded In the last 12 months, did y ou or your family ever eat less than you felt you should because there wasn't enough money for food? Yes 05/21/2024 Stable Housing Answer Date Recorded Are you worried that in the next 2 months you may not have stable housing? Yes 05/21/2024 Transportation Concerns Answer Date Rec orded In the last 12 months, have you or your family ever had to go without healthcare because you didn't have a way to get there? No 05/21/2024 Hazards in Home Answer Date Recorded Think about the place you li ve. Do you have problems with any of the following? Pests (mice or roaches), mold, no/not working smoke detectors, water leaks, no window guards. No 2023 Financing Utilities Answer Date Recorde d In the last 12 months, has t he electric, gas, oil, or water company threatened to shut off your services in your home? No 05/21/2024 Safety at Home Answer Date Recorded Are you or your family worried about feeling saf e in your home? No 05/21/2024 Outside Support Answer Date Recorded Do you feel that you need mo re support from other people or programs to help you care for yourself or your family? No 05/21/2024 Understanding Health Concerns Answer Da te Recorded Do you need help understandi ng your or your child's healthcare needs (diagnosis, medications, plan, etc.)? No 05/21/2024 Financing Health Concerns Answer Date R ecorded In the last 12 months, was t here a time when your child needed to see a doctor or get medications or supplies but could not because of cost? No 05/21/2024 Missing School or Work Answer Date Anderson rded Did you or your child miss s chool or work because of a health problem that could have been avoided? No 05/21/2024 Child Education Answer Date Recorded Do you have concerns about y our/your child's learning or behavior in school, preschool, or daycare? No 05/21/2024 Sex and Gender Information Value Date Recorded Sex Assigned at Not on file Legal Sex Male 5:16 PM EDT Gender Identity Male 10/11/2020 10:14 PM EDT Sexual Orientation Straight 03/15/2021 4: 07 PM EDT Last Filed Vital Signs Vital Sign Reading Time Taken Comments Blood Pressure 118/67 05/21/2024 11:10 AM EDT Pulse 191 05/21/2024 11:10 AM EDT Temperature 38.1 ??C (100.5 ??F) 05/21/2024 11:10 AM EDT Respiratory Rate 20 08/05/2019 3:21 PM EST Oxygen Saturation 94% 05/21/2024 11:10 AM EDT Inhaled Oxygen Concentration - - Weight 72.1 kg (159 lb) 05/21/2024 11:10 AM EDT Height 174.2 cm (5' 8.58 ) 08/10/2022 10:[address] Body Mass Index 23.77 08/10/2022 10:25 AM EST Plan of Treatment Health Maintenance Due Date Last Done Comments Men B Vaccine (2 of 2 - Trum enba SCDM 2-dose series) 02/07/2023 08/10/2022 Influenza Vaccines (#1) 2024 05/27/20 20, 05/19/2019, 04/13/2018, Additional history exists COVID-19 Vaccine (3 - 2023-2 5 season) 2024 12/11/2020, 11/20/2020 DTaP,Tdap,and Td Vaccines (8 - Td or Tdap) 11/22/2031 11/21/2021, 01/22/2015, 08/10/2007, Additional history exists Hepatitis B Vaccines Completed 04/26/2004, 01/26/2004, 2003 HIB Vaccines Completed 10/26/2004, 12/30, 2003, Additional history exists Pneumococcal Vaccine Completed 10/26/2004, 04/26/2004, 2003, Additional history exists IPV Vaccines Completed 08/10/2007, 04/01, 2003, Additional history exists MMR Vaccines Completed 08/10/2007, 08/02/2004 Varicella Vaccines Completed 08/10/2007, 08/02/2004 Hepatitis A Vaccines Completed 01/26/2016, 01/23/20 15 HPV Vaccines Completed 08/08/2016, 01/26/2016 Meningococcal Vaccine Completed 03/09/2020, 015
--- OUTSIDE RECORDS SUMMARY | 2024-09-03 15:29 | XMS_ITS | Encounter Summary ---
Author Organization [facility] Address [address] [place] [address] Phone Care Team Providers Care Tool Die Maker Name Role Phone Linda Godwin MD Primary Care Provider [phone] Reason for Visit * Reason Comments Med Refill Encounter Details Date Type Department Care Team ([facility] st Contact Info) Description 07/17/2021 Refill [facility] [place] [address] [place] [address] Linda Godwin MD [address] [place] [address] Anxiety and depression; Obsessive-compulsive disorder, unspecified type [...] Telephone Encounter - Aamir Barbosa LPN - 07/19/2021 10:47 AM EST [facility] is requesting a refill on Fluoxetine 20 mg. Last PE was 03/15/21 Spoke to mom and she states that pt was on different doses so pt had a lot of meds left over and didn't need a refill until now. Made mom aware to schedule a medication check apt. documented in this encounter Plan of Treatment Not on file documented as of this encounter Visit Diagnoses Diagnosis Anxiety and depression Obsessive-compulsive disorder, unspecified type documented in this encounter Care Teams Tool Die Maker Relationship Specialty Start Date End Date Linda Godwin MD [address] [place] [id number] PCP - General Pediatrics 03/05/20 08/11/24 documented as of this encounter
--- OUTSIDE RECORDS SUMMARY | 2024-09-03 15:29 | XMS_ITS | Encounter Summary ---
Author Organization [facility] Address [address] [place] [address] Phone Care Team Providers Care Log Buyer Name Role Phone Linda Godwin MD Primary Care Provider Encounter Details Date Type Department Care Team (Late st Contact Info) Description 10/30/2010 Documentation [facility] Family Medicine [address] [place], [place] [id number] Family Medicine, Physician [address] [place], [place] [address] Social History Tobacco Use Types Packs/Day Years [...] on filedocumented in this encounter Care Teams Log Buyer Relationship Specialty Start Date End Date Linda Godwin MD [address] [place] [address] PCP - General Pediatrics 03/05/20 08/11/24 documented as of this encounter
--- OUTSIDE RECORDS SUMMARY | 2024-09-03 15:29 | XMS_ITS | Encounter Summary ---
Author Organization [facility] Address [address] [place] [address] Phone Care Team Providers Care Textile Bag Sewer Name Role Phone Linda Godwin MD Primary Care Provider [phone] Reason for Referral * Consult and return to PCP (Routine) - Work in Progress Specialty Diagnoses / Procedures Referred By Eren t Referred To Contact Psychiatry Diagnoses Bulimia nervosa, unspecified severity Linda Godwin MD [address] [place] [address] Phone: tel: fax: [facility] [address] [place] [address] Phone: tel: fax: Referral ID Status Reason Start Date Expiration Date Visits Requested Visits Authorized [id number] Work in Progress Specialty Services Required 01/22/2025 1 1 Scheduling Instructions Anxiety and bulemia Reason for Visit * Reason Onset Date Comments appt 07/09/2024 Encounter Details Date Type Department Care Team (Late st Contact Info) Description 07/09/2024 Telephone [facility] [place] [address] [place] [address] [place] [address] appt Social History Tobacco Use Types Packs/Day Years [...] encounter Miscellaneous Notes * Telephone Encounter - Venecia Douglas MA - 08/29/2024 3:52 PM EST Left last message for pt to call me back. I will mail home letter and adult PCP list and BH list * Telephone Encounter - Linda Godwin MD - 08/15/2024 1:31 PM EST Thank you. * Telephone Encounter - Venecia Douglas MA - 08/15/2024 9:23 AM EST LVM for pt to call me back. Will follow up on therapist, psych and new adult PCP. * Telephone Encounter - Sabina Fung - 08/15/2024 9:02 AM EST Yes, I already called pt and left messages. I forgot to enter a note regarding this. [facility] has not been able to schedule an appt with him yet. * Telephone Encounter - Venecia Douglas MA - 08/12/2024 10:03 AM EST EV, did you ever speak with the pt?. I see you sent a referral but I do not see you spoke with him.Do you know if he is set up with [facility] psych? * Telephone Encounter - Sabina Fung - 07/26/2024 5:02 PM EST Referral sent for [facility] Adult Psychiatry. * Telephone Encounter - Linda Godwin MD - 07/26/2024 1:46 PM EST 07/26/2024 (age 19yr): referral placed. * Telephone Encounter - Venecia Douglas MA - 07/26/2024 1:22 PM EST Per my note, Bess from [facility] was going to send them over as I did ask for them. Message to you to follow up upon your return. I did not follow after that. Thank you. * Telephone Encounter - Sabina Fung - 07/26/2024 1:20 PM EST I called pt and left message requesting call back. * Telephone Encounter - Venecia Douglas MA - 07/10/2024 8:48 AM EST Name and location of facility: [facility] Dates of hospitalizations: 06/30/2024-07/10/2024 Reason for hospitalization: SI, depression and bulimia 4. Desired followup: with in 7-10 days 5. Medications at discharge (and indicate changes): will go home with Fluoxetine 60 mg. Will go home with a 30 day supply at the time of discharge 6. What, if any, psychotropic medications was the [facility] provider prescribing and who was prescribing them (please confirm in Epic)? prescribes the Fluoxetine 40 mg daily 7. Relevant additional information: referred to [facility] counseling appt 07/15 for intake and two other appts in July and August for psych Was referred to do partial hospitalization appt for intake is on August 08. I explained to Bess that pt is aging out in two week. We do not want him without care however he hasbeen made aware multiple times to find an adult PCP and or a med provider. This has not happened. prescribed his last refill and he was made aware at that time this would be the last refill back in May. Bess will send over notes at discharge later today attn to me so I can make sure we receiv e them. I advised to Bess ELIAS will review and if she feels we need to see him one last time we will. I can follow up with Franck and send home again the adult PCP list. * Telephone Encounter - Venecia Douglas MA - 07/09/2024 4:23 PM EST Noted, EV can address tomorrow if she is in the office. If not I will call [facility]. Marti was advised when I spoke with her today that I needed more information. She gave me her contact phone number and when EV calls tomorrow she can ask for Bess the SW and will be able to ask all the questions needed. She was also advised we need discharge notes prior to booking f/u. * Telephone Encounter - Linda Godwin MD - 07/09/2024 4:08 PM EST 07/09/2024 (age 18yr): Unfortunately, this is not appropriate. Franck is turning 19 this month. I havebeen asking him to find an adult provider since last year, and I told him his most recent Rx of fluoxetine would be his last from me. I cannot continue to be his med provider or primary care physician for much longer, and he really needs to find adult providers. Further, we should not see any psych hospital discharge pts without appropriate sign out. That being said, I do not want to see him without care. Perhaps as a first step, [facility] know that Franck is aging out of our practice as of this month, and they need to help him find appropriate adult follow up before they discharge him. We can discuss it further on Monday when I am in the office. * Telephone Encounter - Venecia Douglas MA - 07/09/2024 2:00 PM EST Marti is calling to book a admit follow up from [facility]. I tried to ask the BH dot phrase questions and Marti kept saying she is only booking the PCP appt. I asked if there was someone else we can speak with. She said we can call and speak with Bess the . Call the number in the call box. Pt needs to be booked within 7-10 days after discharge. She did not know any meds he was going with. Admit for depression, bulimia and SI. She did not know if pt had/has a therapist or med provider. It would be noted in the discharge notes we would get at discharge. Admit date 06/30/2024 and discharge 07/10/2024 Since he is not being discharged until tomorrow afternoon I will send message to [facility] and EV can handle this as pt is still in house. documented in this encounter Plan of Treatment Scheduled Referrals Name Type Priority Associated Diagnoses Orde r Schedule Ambulatory referral to Psychiatry Outpatient Referral Routine Bulimia nervosa, unspecified severity Ordered: 07/26/2024 documented as of this encounter Visit Diagnoses Diagnosis Anxiety and depression- Primary Bulimia nervosa, unspecified severity documented in this encounter Care Teams Textile Bag Sewer Relationship Specialty Start Date End Date Linda Godwin MD [address] [place] [address] PCP - General Pediatrics 03/05/20 08/11/24 documented as of this encounter
--- OUTSIDE RECORDS SUMMARY | 2024-09-03 15:29 | XMS_ITS | Encounter Summary ---
Author Organization [facility] Address [address] [place] [address] Phone Care Team Providers Care Dry Cleaner Apprentice Name Role Phone Linda Godwin MD Primary Care Provider [phone] Encounter Details Date Type Department Care Team (Late st Contact Info) Description 03/16/2017 Conversion Encounter [facility] [address] [place] [address] Social History Tobacco Use Types Packs/Day Years Used Date Smoking Tobacco: Never Comments:Never smoker Sex and Gender Information Value Date Recorded Sex Assigned at Not on file Legal Sex Male 5:16 PM EDT Gender Identity Male 10/11/2020 10:14 PM EDT Sexual Orientation Straight 03/15/2021 4: 07 PM EDT documented as of this encounter Plan of Treatment Not on file documented as of this encounter Visit Diagnoses Not on filedocumented in this encounter Care Teams Dry Cleaner Apprentice Relationship Specialty Start Date End Date Linda Godwin MD [address] [place] [address] PCP - General Pediatrics 03/05/20 08/11/24 documented as of this encounter
--- OUTSIDE RECORDS SUMMARY | 2024-09-03 15:29 | XMS_ITS | Encounter Summary ---
Author Organization [facility] Address [address] [place] [address] Phone Care Team Providers Care Rivet Spinner Name Role Phone Linda Godwin MD Primary Care Provider [phone] Encounter Details Date Type Department Care Team (Late st Contact Info) Description 09/05/2012 Documentation EM Family Medicine [address] [place] [address] Family Medicine, Physician [address], [place] [address] Social History Tobacco Use Types Packs/Day Years [...] on filedocumented in this encounter Care Teams Rivet Spinner Relationship Specialty Start Date End Date Linda Godwin MD [address] [place] [address] PCP - General Pediatrics 03/05/20 08/11/24 documented as of this encounter
--- OUTSIDE RECORDS SUMMARY | 2024-09-03 15:29 | XMS_ITS | Encounter Summary ---
Author Organization [facility] Address [address] [place] [address] Phone Care Team Providers Care Degree Clerk Name Role Phone Unavailable Primary Care Provider Unavailabl e Reason for Visit * Reason Onset Date Comments 21 letter 08/12/2024 Encounter Details Date Type Department Care Team ([facility] st Contact Info) Description 08/12/2024 Telephone [facility] [place] [address] [place] [address] Linda Godwin MD [address] [place] [address] 21 letter Social History Tobacco Use Types Packs/Day Years [...] encounter Miscellaneous Notes * Telephone Encounter - Tia Larsen - 08/12/2024 1:00 PM EST Sent 21 letter adult pcp and release to patient. documented in this encounter Plan of Treatment Not on file documented as of this encounter Visit Diagnoses Not on filedocumented in this encounter
--- OUTSIDE RECORDS SUMMARY | 2024-09-03 15:29 | XMS_ITS | Encounter Summary ---
Author Organization [facility] Address [address] [place] [address] Phone Care Team Providers Care Grill Cook Name Role Phone Linda Godwin MD Primary Care Provider [phone] Encounter Details Date Type Department Care Team (Late st Contact Info) Description 07/26/2016 Documentation [facility] Family Medicine [address] [place] [address] Family Medicine, Physician [address] [place], [place] [address] Social History Tobacco Use Types Packs/Day Years [...] on filedocumented in this encounter Care Teams Grill Cook Relationship Specialty Start Date End Date Linda Godwin MD [address] [place] [address] PCP - General Pediatrics 03/05/20 08/11/24 documented as of this encounter
--- OUTSIDE RECORDS SUMMARY | 2024-09-03 15:29 | XMS_ITS | Encounter Summary ---
Author Organization [facility] Address [address] [place] [address] Phone Care Team Providers Care Form Worker Name Role Phone Linda Godwin MD Primary Care Provider [phone] Encounter Details Date Type Department Care Team (Late st Contact Info) Description 06/21/2013 Documentation [facility] [place] [address] [place], [place] [id number] Family Medicine, Physician [address] [place], [place] [address] Social History Tobacco Use Types Packs/Day Years [...] on filedocumented in this encounter Care Teams Form Worker Relationship Specialty Start Date End Date Linda Godwin MD [address] [place] [address] PCP - General Pediatrics 03/05/20 08/11/24 documented as of this encounter
--- NOTE | 2024-09-03 15:39 | A.OFFVIS_ITS ---
Intake Visit Reasons: PO: Rt 5th [facility] CRPP w/ AR 06/24/24-w/xray Intake Note: Cooper is a 18 year old right hand dominant male who presents today for a post operative visit s/p right open 5th metacarpal fracture CRPP and I&D of right open 5th metacarpal fracture DOS: 06/24/24 w/ Dr Hess. Patient reports he is doing well, however he has a fall on 09/02/24 which lead him to land on his right hand. He mentions that he is not having pain at the moment just stiffness. Allergies Penicillins [PENICILLINS] Allergy (Intermediate, Verified 09/03/24 15:42) RASH, VOMITING amoxicillin [From AUGMENTIN] Allergy (Unknown, Verified 09/03/24 15:42) HIVES/VOMIT clavulanic acid [From AUGMENTIN] Allergy (Unknown, Verified 09/03/24 15:42) HIVES/VOMIT clindamycin [CLINDAMYCIN] Allergy (Unknown, Verified 09/03/24 15:42) HIVES/VOMIT penicillamine Adverse Reaction (Mild, Verified 09/03/24 15:42) Muscle Pain Erythromycin Allergy (Unknown, Uncoded 08/06/24 10:54) Abdominal Pain HPI HPI PO: Rt 5th [facility] CRPP w/ AR 06/24/24-w/xray: Details: Cooper is a 18 year old right hand dominant male who presents today for a post operative visit s/p right open 5th metacarpal fracture CRPP and I&D of right open 5th metacarpal fracture DOS: 06/24/24 w/ Dr Hess. Patient reports he is doing well, however he has a fall on 09/02/24 which lead him to land on his right hand. He mentions that he is not having pain at the moment just stiffness. 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 Neuro: Normal sensation of the tips of all digits of the right hand at this time Vascular: Cap refill brisk Pain: Patient reports no tenderness to palpation of the right 5th metacarpal Patient does report no tenderness to palpation about the pin sites ROM: Patient is able make closed fist with all digits of the right Patient is able to extend all digits of the right hand fully and without difficulty Skin: Pin sites appear dry and intact, no evidence of discharge No evidence of infection of pin sites or incision General: No erythema, edema, ecchymosis noted Psych: Appears grossly normal Affect normal Attitude cooperative Results Reviewed Results Reviewed: X-rays obtained in the office today and independently reviewed by me, Rayo Calhoun PA-C, demonstrate oblique, displaced fracture of the right 5th metacarpal shaft with evidence of interval bony healing. Assessment & Plan Assessment & Plan (1) Fracture of shaft of fifth metacarpal bone of right hand: Code(s): S62.326A - Displaced fracture of shaft of fifth metacarpal bone, right hand, initial encounter for closed fracture Category: Medical Plan 1. Displaced, oblique fracture of the right 5th metacarpal shaft DOS 06/24/2024 Patient appears to be recovering well postoperatively Patient is educated about the typical recovery course No further evidence of infection, patient no longer requires antibiotic therapy Patient can discontinue use of the Velcro wrist splint and marquis tape at this time. Patient was amenable to this plan Patient will follow-up as needed with any acute concerns Orders: Orders XR hand RT min 3V Today M79.641 - Pain in right hand Coding Level of Care Code Global (22283) Diagnoses Fracture of shaft of fifth metacarpal bone of right hand Q20.288Q
== END 2024-09-03 16:15 | disposition home or self-care (01) ==
PROVIDERS: PCP Pediatrics
DX: S62.326A Displaced fracture of shaft of fifth metacarpal bone, right hand, initial encounter for closed fracture (principal)
CPT/HCPCS: 99024

== ENCOUNTER 2024-09-03 15:25 | Outpatient (REF) | payer OTHER, SELFPAY ==
--- NOTE | ~2024-09-03 | XR_ITS ---
EXAMINATION: XR HAND, RIGHT CLINICAL INFORMATION: M79.641 - Pain in right hand COMPARISON: None available. TECHNIQUE: PA, lateral, and oblique views of the right hand. FINDINGS: Oblique minimally displaced healing fracture mid fifth metacarpal with mild soft tissue swelling. No significant change from the last exam 08/06/2024. No additional fractures seen. XR/XR hand RT min 3V IMPRESSION: Healing oblique fracture mid fifth metacarpal with mild soft tissue swelling. No additional fractures seen. Electronically signed by: Martin Stroud MD 09/04/2024 09:07 AM NHUNG
== END 2024-09-03 15:26 | disposition home or self-care (01) ==
LOC: HO.HOSX 15:25
PROVIDERS: PCP Pediatrics
DX: M79.641 Pain in right hand (principal)
CPT/HCPCS: 73130

== ENCOUNTER → 2024-09-03 15:32 | Outpatient (BNV) | payer OTHER, SELFPAY | PROVIDERS: PCP Pediatrics; Visit Provider Radiology Diagnostic Radiology | DX: S62.396D Other fracture of fifth metacarpal bone, right hand, subsequent encounter for fracture with routine healing (principal) | CPT/HCPCS: 73130 ==

== ENCOUNTER → 2024-09-06 09:46 | Outpatient (AMB) | payer OTHER, SELFPAY | END | disposition home or self-care (01) | PROVIDERS: PCP Pediatrics | CPT/HCPCS: 99024 ==

== ENCOUNTER 2024-09-13 10:12 | Outpatient (AMB) | payer OTHER, SELFPAY ==
--- NOTE | 2024-09-13 10:17 | A.OFFVIS_ITS ---
Intake Visit Reasons: PO - RT 5th [facility] CRPP 06/24/24 AR, wound check Intake Note: Cooper is a19 year old right hand dominant male who presents for a wound check for the right 5th MC CRPP 06/24/24 with AR. Patient reports he is doing well. Denies numbness, tingling, finger locking. Patient states he completed his antibiotics. Allergies Penicillins [PENICILLINS] Allergy (Intermediate, Verified 09/13/24 10:22) RASH, VOMITING amoxicillin [From AUGMENTIN] Allergy (Unknown, Verified 09/13/24 10:22) HIVES/VOMIT clavulanic acid [From AUGMENTIN] Allergy (Unknown, Verified 09/13/24 10:22) HIVES/VOMIT clindamycin [CLINDAMYCIN] Allergy (Unknown, Verified 09/13/24 10:22) HIVES/VOMIT penicillamine Adverse Reaction (Mild, Verified 09/13/24 10:22) Muscle Pain Erythromycin Allergy (Unknown, Uncoded 09/13/24 10:22) Abdominal Pain HPI HPI PO - RT 5th MC CRPP 06/24/24 AR, wound check: Details: Cooper is a19 year old right hand dominant male who presents for a wound check for the right 5th MC CRPP 06/24/24 with AR. Patient reports he is doing well. Denies numbness, tingling, finger locking. Patient states he completed his antibiotics. 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 Neuro: Normal sensation of the tips of all digits of the right hand at this time Vascular: Cap refill brisk Pain: Patient reports no tenderness to palpation of the right 5th metacarpal Patient does report no tenderness to palpation about the pin sites ROM: Patient is able make closed fist with all digits of the right Patient is able to extend all digits of the right hand fully and without difficulty Skin: Pin sites appear dry and intact, no evidence of discharge No evidence of infection of pin sites or incision General: No erythema, edema, ecchymosis noted Psych: Appears grossly normal Affect normal Attitude cooperative Assessment & Plan Assessment & Plan (1) Fracture of shaft of fifth metacarpal bone of right hand: Code(s): S62.326A - Displaced fracture of shaft of fifth metacarpal bone, right hand, initial encounter for closed fracture Category: Medical Plan 1. Displaced, oblique fracture of the right 5th metacarpal shaft DOS 06/24/2024 Patient appears to be recovering well postoperatively Patient is educated about the typical recovery course Signs and symptoms of potential infection have resolved Patient is educated can wash the pin site with soap and water, but should still avoid submerging for another week Patient can discontinue use of the Velcro wrist splint and marquis tape at this time. Patient was amenable to this plan Patient will follow-up as needed with any acute concerns Coding Level of Care Code Global (24646) Diagnoses Fracture of shaft of fifth metacarpal bone of right hand S62.326A
--- OUTSIDE RECORDS SUMMARY | 2024-09-13 11:02 | XMS_ITS | Encounter Summary ---
Author Organization [facility] Address [address] [place] [address] Phone Care Team Providers Care Mandrel Maker Name Role Phone Linda Godwin MD Primary Care Provider [phone] Reason for Visit * Reason Comments Med Change Request Encounter Details Date Type Department Care Team ([facility] st Contact Info) Description 09/04/2022 Refill [facility] [place] [address] [place] [address] Linda Godwin MD [address] [place] [address] Anxiety and depression Social History Tobacco Use [...] depression documented in this encounter Care Teams Mandrel Maker Relationship Specialty Start Date End Date Linda Godwin MD [address] [place] [address] PCP - General Pediatrics 03/05/20 08/11/24 documented as of this encounter
--- OUTSIDE RECORDS SUMMARY | 2024-09-13 11:02 | XMS_ITS | Encounter Summary ---
Author Organization [facility] Address [address] [place] [address] Phone Care Team Providers Care Sweatband Flanger Name Role Phone Linda Godwin MD Primary Care Provider [phone] Reason for Visit * Reason Comments Med Change Request Encounter Details Date Type Department Care Team ([facility] Contact Info) Description 01/17/2022 Refill [facility] [place] [address] [place] [address] Linda Godwin MD [address] [place] [address] Anxiety and depression; Obsessive-compulsive disorder, unspecified type [...] type documented in this encounter Care Teams Sweatband Flanger Relationship Specialty Start Date End Date Linda Godwin MD [address] [place] [address] PCP - General Pediatrics 03/05/20 08/11/24 documented as of this encounter
--- OUTSIDE RECORDS SUMMARY | 2024-09-13 11:02 | XMS_ITS | Encounter Summary ---
Author Organization [facility] Address [address] [place] [address] Phone Care Team Providers Care Foot Tender Name Role Phone Linda Godwin MD Primary Care Provider [phone] Encounter Details Date Type Department Care Team (Late st Contact Info) Description 06/21/[address] [facility] Family Medicine [address] [place], [place] [id number] Family Medicine, Physician [address] [place], [place] [address] Social History Tobacco Use Types Packs/Day Years [...] on filedocumented in this encounter Care Teams Foot Tender Relationship Specialty Start Date End Date Linda Godwin MD [address] [place] [address] PCP - General Pediatrics 03/05/20 08/11/24 documented as of this encounter
--- OUTSIDE RECORDS SUMMARY | 2024-09-13 11:02 | XMS_ITS | Encounter Summary ---
Author Organization [facility] Address [address] [place] [address] Phone Care Team Providers Care It Infrastructure Manager Name Role Phone Linda Godwin MD Primary Care Provider [phone] Encounter Details Date Type Department Care Team (Late st Contact Info) Description 07/26/[address] [facility] [place] [address] [place] [address] Family Medicine, Physician [address] [place], [place] [address] Social History Tobacco Use Types Packs/Day Years [...] on filedocumented in this encounter Care Teams It Infrastructure Manager Relationship Specialty Start Date End Date Linda Godwin MD [address] [place] [address] PCP - General Pediatrics 03/05/20 08/11/24 documented as of this encounter
--- OUTSIDE RECORDS SUMMARY | 2024-09-13 11:02 | XMS_ITS | Encounter Summary ---
Author Organization [facility] Address [address] [place] [address] Phone Care Team Providers Care Jewelry Sales Name Role Phone Linda Godwin MD Primary Care Provider [phone] Reason for Visit * Reason Comments Med Refill Encounter Details Date Type Department Care Team ([facility] st Contact Info) Description 06/04/2022 Refill [facility] [place] [address] [place] [address] Linda Godwin MD [address] [place] [address] Anxiety and depression; Obsessive-compulsive disorder, unspecified type [...] He is currently scheduled 08/10/2022 for his [facility]. Thank you, Reagan * Telephone Encounter [...] type documented in this encounter Care Teams Jewelry Sales Relationship Specialty Start Date End Date Linda Godwin MD [address] [place] [address] PCP - General Pediatrics 03/05/20 08/11/24 documented as of this encounter
--- OUTSIDE RECORDS SUMMARY | 2024-09-13 11:02 | XMS_ITS | Encounter Summary ---
Author Organization [facility] Address [address] [place] [address] Phone Care Team Providers Care Retail Business Manager Name Role Phone Linda Godwin MD Primary Care Provider Encounter Details Date Type Department Care Team (Late st Contact Info) Description 10/01/2012 Documentation [facility] [address] [place], [place] [id number] Family Medicine, Physician [address] [place], [place] [address] Social History Tobacco Use Types Packs/Day Years [...] on filedocumented in this encounter Care Teams Retail Business Manager Relationship Specialty Start Date End Date Linda Godwin MD [address] [place] [address] PCP - General Pediatrics 03/05/20 08/11/24 documented as of this encounter
--- OUTSIDE RECORDS SUMMARY | 2024-09-13 11:02 | XMS_ITS | Encounter Summary ---
Author Organization [facility] Address [address] [place] [address] Phone Care Team Providers Care Bar Useful Or Busser Name Role Phone Linda Godwin MD Primary Care Provider [phone] Reason for Visit * Reason Comments Med Refill Encounter Details Date Type Department Care Team ([facility] st Contact Info) Description 07/17/2021 Refill [facility] [place] [address] [place] [address] Linda Godwin MD [address] [place] [address] Anxiety and depression; Obsessive-compulsive disorder, unspecified type [...] Barbosa LPN - 07/19/2021 10:47 AM EST [facility] is requesting a refill on [...] type documented in this encounter Care Teams Bar Useful Or Busser Relationship Specialty Start Date End Date Linda Godwin MD [address] [place] [address] PCP - General Pediatrics 03/05/20 08/11/24 documented as of this encounter
--- OUTSIDE RECORDS SUMMARY | 2024-09-13 11:02 | XMS_ITS | Encounter Summary ---
Author Organization [facility] Address [address] [place] [address] Phone Care Team Providers Care Shoulder Boner Name Role Phone Linda Godwin MD Primary Care Provider [phone] Encounter Details Date Type Department Care Team (Late st Contact Info) Description 03/03/2016 Documentation [facility] [address] [place] [address] Family Medicine, Physician [address] [place] [address] Social History Tobacco Use Types Packs/Day Years [...] on filedocumented in this encounter Care Teams Shoulder Boner Relationship Specialty Start Date End Date Linda Godwin MD [address] [place] [address] PCP - General Pediatrics 03/05/20 08/11/24 documented as of this encounter
--- OUTSIDE RECORDS SUMMARY | 2024-09-13 11:02 | XMS_ITS | Encounter Summary ---
Author Organization [facility] Address [address] [place] [address] Phone Care Team Providers Care Transportation Inspector Name Role Phone Linda Godwin MD Primary Care Provider [phone] Reason for Visit * Reason Comments Med Refill Encounter Details Date Type Department Care Team ([facility] st Contact Info) Description 04/26/2022 Refill [facility] [place] [address] [place] [address] Linda Godwin MD [address] [place] [address] Anxiety and depression; Obsessive-compulsive disorder, unspecified type [...] type documented in this encounter Care Teams Transportation Inspector Relationship Specialty Start Date End Date Linda Godwin MD [address] [place] [address] PCP - General Pediatrics 03/05/20 08/11/24 documented as of this encounter
--- OUTSIDE RECORDS SUMMARY | 2024-09-13 11:02 | XMS_ITS | Encounter Summary ---
Author Organization [facility] Address [address] [place] [address] Phone Care Team Providers Care Day Care Aide Name Role Phone Linda Godwin MD Primary Care Provider [phone] Reason for Referral * Consult and return to PCP (Routine) - Closed Specialty Diagnoses / Procedures Referred By Contverónica t Referred To Contact Psychiatry Diagnoses Bulimia nervosa, unspecified severity Linda Godwin MD [address] [place] [address] Phone: tel: fax: [facility] [address] [place] [address] Phone: tel: fax: Referral ID Status Reason Start Date Expiration Date V isits Requested Visits Authorized [id number] Closed Specialty Services Required 07/26/2024 01/22/2025 1 1 Scheduling Instructions Anxiety and bulemia Reason for Visit * Reason Onset Date Comments appt 07/09/2024 Encounter Details Date Type Department Care Team (Late st Contact Info) Description 07/09/2024 Telephone [facility] [place] [address] [place] [address] Venecia Douglas MA [address] [place] [address] appt Social History Tobacco Use Types Packs/Day [...] encounter Miscellaneous Notes * Telephone Encounter - Sabina Fung - 09/04/2024 4:21 PM EST [facility] called pt 2x and pt has to call them now to book appt. I made last attempt in contacting pt and left VM. * Telephone Encounter - Venecia Douglas MA - 08/29/2024 3:52 PM EST Left last message for pt to call me back. I will mail home letter and adult PCP list and list * Telephone Encounter - Linda Godwin [...] forgot to enter a note regarding this. [facility] has not been able to schedule an appt with him yet. * Telephone Encounter - Venecia Douglas MA - 08/12/2024 10:03 AM EST EV, did you ever speak with the pt?. I see you sent a referral but I do not see you spoke with him.Do you know if he is set up with [facility] psych? * Telephone Encounter - Sabina Fung - 07/26/2024 5:02 PM EST Referral sent for [facility] Adult Psychiatry. * Telephone Encounter - Linda Godwin MD - 07/26/2024 1:46 PM EST 07/26/2024 (age 19yr): referral placed. * Telephone Encounter - Venecia Douglas MA - 07/26/2024 1:22 PM EST Per my note, Bess from [facility] was going to send them over as [...] AM EST Name and location of facility: [facility] Dates of hospitalizations: 06/30/2024-07/10/2024 Reason for hospitalization: SI, depression and bulimia 4. Desired followup: with in 7-10 days 5. Medications at discharge (and indicate changes): will go home with Fluoxetine 60 mg. Will go home with a 30 day supply at the time of discharge 6. What, if any, psychotropic medications was the [facility] provider prescribing and who was prescribing [...] the office. If not I will call [facility]. Marti was advised when I spoke with [...] as a first step, [facility] that [...] EST Marti is calling to book a BH admit follow up from [facility]. I tried to ask the BH dot [...] tomorrow afternoon I will send message to [facility] and EV can handle this as pt is still in house. documented in this encounter Plan of Treatment Scheduled Referrals Name Type Priority Associated Diagnoses Orde r Schedule Ambulatory referral to Psychiatry Outpatient Referral Routine Bulimia nervosa, unspecified severity Ordered: 07/26/2024 documented as of this encounter Visit Diagnoses Diagnosis Anxiety and depression- Primary Bulimia nervosa, unspecified severity documented in this encounter Care Teams Day Care Aide Relationship Specialty Start Date End Date Linda Godwin MD [address] [place] [address] PCP - General Pediatrics 03/05/20 08/11/24 documented as of this encounter
--- OUTSIDE RECORDS SUMMARY | 2024-09-13 11:02 | XMS_ITS | Encounter Summary ---
Author Organization [facility] Address [address] [place] [address] Phone Care Team Providers Care Bar Host/Hostess Name Role Phone Linda Godwin MD Primary Care Provider [phone] Encounter Details Date Type Department Care Team (Late st Contact Info) Description 09/05/2012 Documentation [facility] [address] [place], [place] [id number] Family Medicine, Physician [address] [place], [place] [address] Social History Tobacco Use Types Packs/Day Years [...] on filedocumented in this encounter Care Teams Bar Host/Hostess Relationship Specialty Start Date End Date Linda Godwin MD [address] [place] [address] PCP - General Pediatrics 03/05/20 08/11/24 documented as of this encounter
--- OUTSIDE RECORDS SUMMARY | 2024-09-13 11:03 | XMS_ITS | Encounter Summary ---
Author Organization [facility] Address [address] [place] [address] Phone Care Team Providers Care Nutritional Yeast Supervisor Name Role Phone Linda Godwin MD Primary Care Provider [phone] Encounter Details Date Type Department Care Team (Late st Contact Info) Description 03/16/2017 Conversion Encounter [facility] [address] [place] [address] Social History Tobacco Use Types Packs/Day Years [...] on filedocumented in this encounter Care Teams Nutritional Yeast Supervisor Relationship Specialty Start Date End Date Linda Godwin MD [address] [place] [address] PCP - General Pediatrics 03/05/20 08/11/24 documented as of this encounter
--- OUTSIDE RECORDS SUMMARY | 2024-09-13 11:03 | XMS_ITS | Encounter Summary ---
Author Organization [facility] Address [address] [place] [address] Phone Care Team Providers Care Production Gear Cutter Name Role Phone Linda Godwin MD Primary Care Provider [phone] Encounter Details Date Type Department Care Team (Late st Contact Info) Description 07/26/2016 Documentation [facility] [place] [address] [place] [address] Family Medicine, Physician [address] [place], [place] [address] Social History Tobacco Use Types Packs/Day Years [...] on filedocumented in this encounter Care Teams Production Gear Cutter Relationship Specialty Start Date End Date Linda Godwin MD [address] [place] [address] PCP - General Pediatrics 03/05/20 08/11/24 documented as of this encounter
--- OUTSIDE RECORDS SUMMARY | 2024-09-13 11:03 | XMS_ITS | Encounter Summary ---
Author Organization [facility] Address [address] [place] [address] Phone Care Team Providers Care Window Cutter Name Role Phone Linda Godwin MD Primary Care Provider [phone] Encounter Details Date Type Department Care Team (Late st Contact Info) Description 10/30/2010 Documentation [facility] [address] [place], [place] [phone] Family Medicine, Physician [address] [place], [place] [address] Social History Tobacco Use Types Packs/Day Years [...] on filedocumented in this encounter Care Teams Window Cutter Relationship Specialty Start Date End Date Linda Godwin MD [address] [place] [address] PCP - General Pediatrics 03/05/20 08/11/24 documented as of this encounter
--- OUTSIDE RECORDS SUMMARY | 2024-09-13 11:03 | XMS_ITS | Clinical Summary ---
Author Organization [facility] Address [address] [place] [address] Phone Care Team Providers Care Cinder Pitman Name Role Phone Unavailable Primary Care Provider [...] Specialist Visit: 07/10/2024 (age 18yr): Hospitalized at [facility] 06/30/2024-07/10/2024for SI, depression, Bulemia. Discharged on Fluoxetine [...] OCD symptoms. . Has therapist (Zoila Cross [phone]). Partial hospital program early May 2020 . [...] was needed. Mom is hoping to get [facility] to cover treatment at [facility]. I offered to help with referral [...] DARCY unexpectedly in May 2018 or acute UT. SX began shortly after that. 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 - Agrees to schedule with [facility] for intake - Continue back to 40 mg,declines dose increase. - Follow up with me in 6 weeks - encourage finding adult psychiatrist and adult PCP (list given) - Last Specialist Visit: 07/10/2024 (age 18yr): Hospitalized at [facility] 06/30/2024-07/10/2024for SI, depression, Bulemia. Discharged on Fluoxetine [...] in the ED, stabilized, and referred to [facility]. Message to [facility] to request follow up with me and to make sure [facility] connection is made. 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 - Agrees to schedule with [facility] for intake - Continue back to [...] some reluctance to brief intervention/safety check with [facility] today - Agrees to schedule with [facility] for intake - Agrees to schedule follow up with in soonest available (but not next week) - Will accept follow up phone calls from [facility] or from in - Follow up with [facility] psychiatrist next month for med adjustment or [...] wants to try psychology today - offered [facility] and follow up call from [facility]. Both declined for now. - Hx intrusive [...] exceeding well. 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 GAD7 and PHQ9 both 4. [...] disassociation. Fluoxetine was initially started 05/19/2020. s/p [facility] hospital program early May 2020. Offered IH [...] doing really good. He participated in a [employer] competition recently and really enjoyed it. 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 He has not been able to schedule [...] was needed. Mom is hoping to get [facility] cover treatment at [facility]. I offered to help with referral [...] OCD thoughts are less intrusive. He start [facility] hospital program last week. He will likely [...] a therapist x 2 months (Zoila Tay [id number]). Diagnosis from her has been OCD with [...] for grief. - 03/21/2019: Saw Cardiol at [facility] ([place]): EKG, Holter negative. ? Some aspect [...] 03/18 shows 12 degree curve. Referred to [facility].\ (Pt was seen at [facility] and no scoliosis was found, no follow [...] Type Department Care Team Description 08/12/2024 Telephone [facility] [address] [place] [address] Linda Godwin MD 19 letter 07/09/2024 Telephone [facility] [address] [place] [address] Venecia Douglas MA appt 07/02/2024 Telephone [facility] [address] [place] [address] PamShilpi matthews LPN Hospital Admit 06/30/2024 10:15 PM EST - 07/10/2024 12:54 PM EST Hospital Encounter [facility] - Patient Ping 06/18/2024 Telephone [facility] [address] [place] [address] Aamir Barbosa LPN ER Visit 06/17/2024 Refill [facility] [address] [place] [address] Linda Godwin MD Anxiety and depression 06/16/2024 10:24 PM EST - 06/17/2024 12:33 AM EST Hospital Encounter [facility] - Patient Ping from Last 3 Months Immunizations Immunization Administration Dates Next Due DTaP 5 08/10/2007, [...]
== END 2024-09-13 10:30 | disposition home or self-care (01) ==
PROVIDERS: PCP Pediatrics
DX: S62.326A Displaced fracture of shaft of fifth metacarpal bone, right hand, initial encounter for closed fracture (principal)
CPT/HCPCS: 99024

== ENCOUNTER → 2024-09-13 10:12 | Outpatient (BNVA) | payer OTHER, SELFPAY | PROVIDERS: PCP Pediatrics ==